=== PATIENT | female | born 1945 | race Caucasian/White ===

== ENCOUNTER 2017-01-04 06:58 | Inpatient (IN) | payer MEDICARE ==
[2017-01-04] MEDS ORDERED: ONDANSETRON HCL/PF 2 MG/ML VIAL IV ONE (07:07)
[2017-01-04] MEDS ORDERED: MORPHINE SULFATE 2 MG/ML DISP.SYRIN IV ONE ×3 (07:07→09:37)
[2017-01-04] MEDS ORDERED: NORMAL SALINE 1,000 ML IV ONE (07:07)
[2017-01-04] MEDS ORDERED: MORPHINE SULFATE 2 MG/ML DISP.SYRIN ONE ×3 (07:14→10:08)
[2017-01-04] MEDS ORDERED: ONDANSETRON HCL/PF 2 MG/ML VIAL ONE (07:14)
--- NOTE | 2017-01-04 07:15 | ERNOTE ---
<TaylorFilippo - Last Filed: 01/04/17 07:59> Date of Service: 01/04/17 Stated Complaint: SOB Presenting Symptoms:: cough, fever Source: patient Exam Limitations: no limitations Immunizations: IMMUNIZATION HX Immunizations Up to Date Yes History of Influenza Vaccine Yes Hx Pneumococcal Vaccination Yes Allergies/Adverse Reactions: Allergies No Known Allergies Allergy (Verified 01/04/17 12:03) Home Medications: HOME MEDICATIONS Atorvastatin Calcium [Lipitor] 10 mg PO HS 03/02/13 [Last Taken Unknown] Insul NPH Hu Rec/Ins Rg Hu Rec [Novolin 70/30] 55 units SC QAM 03/02/13 [Last Taken Unknown] Lisinopril/Hydrochlorothiazide [Lisinopril-Hctz 20-25 mg Tab] 2 tab PO DAILY [Last Taken Unknown] Metoprolol Succinate [Toprol Xl] 100 mg PO QPM 03/02/13 [Last Taken 12/25/13 20: 00] Omeprazole [Prilosec] 40 mg PO DAILY 03/02/13 [Last Taken Unknown] Potassium Chloride [K-Dur] 20 meq PO BID 03/02/13 [Last Taken Unknown] Pramipexole Di-HCl [Mirapex] 0.125 mg PO HS 03/02/13 [Last Taken Unknown] Gabapentin [Neurontin] 200 mg PO TID 12/22/13 [Last Taken Unknown] Aspirin [Aspirin Chewable] 81 mg PO DAILY #100 tab.chew 08/10/14 [Last Taken Unknown] metFORMIN HCL [Glucophage] 500 mg PO BIDWM 10/10/16 [Last Taken Unknown] traMADol HCL [Ultram] 50 mg PO Q8H PRN 10/10/16 [Last Taken Unknown] Oxybutynin Chloride [Ditropan Xl] 10 mg PO DAILY 01/04/17 [Last Taken Unknown] - History of Present Ilness Timing: constant, getting worse Severity: moderate - Patient is crying out in pain requesting something for pain Frequency/Possible Cause: Reports: no prior episodes Modifying Factors - Improves: Reports: nothing Modifying Factors - Worsens: Reports: coughing Associated Symptoms: Reports: cough, shortness of breath Review of Systems - Review of Systems Constitutional: Present: See HPI EYE: Present: no symptoms reported ENT: Present: no symptoms reported Respiratory: Present: See HPI Cardiology: Present: See HPI Gastrointestinal/Abdominal: Present: no symptoms reported Genitourinary: Present: no symptoms reported Musculoskeletal: Present: no symptoms reported Skin: Present: no symptoms reported Neurological: Present: no symptoms reported Endocrine: Present: no symptoms reported Hematologic/Lymphatic: Present: no symptoms reported Psych: Present: no symptoms reported - Patient's Past Medical History Patient History - Medical: Chronic Pain, Diabetes Type 2 Insulin Dependent, GERD , Obesity, Other Patient History - Cardiac/Respiratory: Hypertension, Hyperlipidemia Patient History - Cancer: No Hx of Cancer Patient History - Surgical Procedures: Cholecystectomy, Total Knee Replacement, Other - Social History Smoking Status: Never smoker Have you smoked in the past 12 months: No - Immunizations Immunizations Up to Date: Yes Hx Pneumococcal Vaccination: Yes History of Influenza Vaccine: Yes Physical Exam - Physical Exam General Appearance: Present: moderate distress, anxious, obese - morbidly obese Eye Exam: Normal inspection: bilateral, PERRL: bilateral Ears, Nose, Throat: Present: normal ENT inspection, H, normal pharynx Neck: Present: normal inspection, nontender Respiratory: Present: chest nontender - right lower anterior, lungs clear, decreased breath sounds. Absent: rales, wheezing Cardiovascular/Chest: Present: regular rate, rhythm - rate 94 Gastrointestinal/Abdominal: Present: normal bowel sounds, nontender, nondistended, soft Rectal Exam: Present: deferred Back Exam: Present: normal inspection Extremity Exam: Present: normal inspection, non-tender, normal range of motion Neurological Exam: Present: alert, oriented, no motor/sensory deficits Skin Exam: Present: normal color, warm/dry Lymphatic Exam: Present: no adenopathy Pelvic Exam: Present: deferred ED Progress - Vital Signs Vital Signs: Vital Signs 01/04/17 07:01 Temperature 36.7 C Pulse Rate 96 Respiratory 32 H Rate Blood Pressure 159/85 O2 Sat by Pulse 92 Oximetry - EKG EKG: NSR, no ST T wave changes - X-Ray X-Ray #1 X-Ray: chest - RLL pneumonia - Progress/Reassessment Chief Complaint: Cough - Transfer of Care Physician Sign Out: Filippo Vazquez Brief History: RLL pneumonia Receiving Physician: Amarilys Ortega Expected Disposition: Admit Departure - Departure Clinical Impression: Pneumonia Qualifiers: Pneumonia type: due to unspecified organism Laterality: right Lung location: lower lobe of lung Qualified Code(s): J18.1 - Lobar pneumonia, unspecified organism Sepsis Qualifiers: Sepsis type: sepsis due to unspecified organism Qualified Code(s): A41.9 - Sepsis, unspecified organism Pulmonary embolism Qualifiers: Pulmonary embolism type: other Chronicity: acute Acute cor pulmonale presence: without acute cor pulmonale Qualified Code(s): I26.99 - Other pulmonary embolism without acute cor pulmonale Disposition: [facility] Condition: Fair <Amarilys Ortega - Last Filed: 01/04/17 12:25> Immunizations: IMMUNIZATION HX Immunizations Up to Date Yes History of Influenza Vaccine Yes Hx Pneumococcal Vaccination Yes Physical Exam - Physical Exam General Appearance: Present: alert, mild distress, anxious, obese Respiratory: Present: no respiratory distress Neurological Exam: Present: alert, oriented Skin Exam: Present: normal color, warm/dry ED Progress - Results and Orders Patient's Lab Results:: I have reviewed the patient's lab results. - Vital Signs Patient's Vital Signs:: I have reviewed the patient's vital signs. Vital Signs: Vital Signs 01/04/17 07:01 Temperature 36.7 C Pulse Rate 96 Respiratory 32 H Rate Blood Pressure 159/85 O2 Sat by Pulse 92 Oximetry - X-Ray X-Ray #1 X-Ray: chest Interpretation: Reviewed by me - CT/Ultrasound CT/Ultrasound Narrative: CT chest: small RUL PE, right mid and lower lung infiltrate - Progress/Reassessment Progress Note-Subjective: 01/04/17 08:08 discussed results of pneumonia with patient, patient meets SIRS criteria, pneumonia severity index 99 (class IV) meets admission criteria, patient requesting pain medication 01/04/17 10:[address] results with radiologist 01/04/17 10:15 message to Ashleigh Romero 01/04/17 10:[address] results with patient and family, agrees to admission 01/04/17 10:35 discussed with Ashleigh Romero, okay to admit to acute, will continue rocephin and zithromax, patient received lovenox, will let admitting doctor decide on care home anticoagulation
[2017-01-04 07:26] LABS: Hematocrit 39.4 % (37.0-47.0); Hemoglobin 13.1 gm/dL (12.5-16.0); Mean Corpuscular Hemoglobin 27.9 pg (27-31); Mean Corpuscular Hgb Conc 33.2 g/dl (32-36); Mean Platelet Volume 9.6 fl (6.0-9.5); Platelet Count 251 K/mm3 (150-450); Red Blood Count 4.69 M/mm3 (4.2-5.4); Red Cell Distribution Width 13.4 % (11.5-14.0); White Blood Count 18.7 K/mm3 (4.0-10.5)
[2017-01-04 07:28] LABS: Total Cells Counted 100
--- OUTSIDE RECORDS SUMMARY | 2017-01-04 07:30 | XMS REPORT | Continuity of Care Document ---
:1945 Author Organization [facility] ([facility]) Address [address] [place] [address] Phone [phone] Care Team Providers Name Role Phone Naya Husain Primary Care Provider [phone] Source Comments This disclosure is being made pursuant to the Care Everywhere program, applicable federal and state laws, and may not contain all informaitonavailable regarding this patient.[facility] ([facility]) Active Allergies and Adverse Reactions Allergen Noted Date Severity Reactions Comments No Known Allergies 02/05/2009 NO REACTION Current Medications Prescription Sig. Disp. Refills Start Date End Date Status omeprazole 40 mg Take 40 mg by Active capsule mouth daily. lisinopril-hydrochl Take 2 Tabs Active orothiazide 20-25 by mouth mg per tablet daily. pramipexole 0.125 Take 0.125 mg Active mg tablet by mouth at bedtime. flecainide 100 mg Take 100 mg Active tablet by mouth 2 times daily. atorvastatin 10 mg Take 10 mg by Active tablet mouth every evening. metoPROLol Take 100 mg Active succinate 100 mg XL by mouth 2 tablet times daily. potassium chloride Take 20 mEq Active 20 mEq tablet by mouth 2 times daily. metFORMIN 1,000 mg Take 1,000 mg Active tablet by mouth 2 times daily with meals. aspirin 81 mg EC take 1 tablet 08/29/2014 Active tablet by oral route every day nitroglycerin 0.4 One tab under 12/23/2011 Active mg SL tablet tongue for chest pain; may repeat every 5 min up to total of 3 tabs traMADol 50 mg 50 mg 2 times 01/07/2016 Active tablet daily. NOVOLIN 70/30 100 55 Units 12/12/2015 Active unit/mL injection daily. vial oxybutynin 5 mg Take 1 tablet 30 tablet 11 09/24/2016 Active tablet (5 mg total) by mouth every 4 hours as needed. gabapentin 100 mg Take 100 mg Active capsule by mouth 3 times daily. HYDROcodone-acetami Take 1-2 30 tablet 0 09/24/2016 12/18/2016 Discontinued nophen 5-325 mg per tablets by tablet mouth every 4 hours as needed for pain. docusate 100 mg Take 1 30 capsule 2 09/24/2016 12/18/2016 Discontinued capsule capsule (100 mg total) by mouth 2 times daily. sennosides 8.6 mg Take 1 tablet 30 tablet 2 09/24/2016 12/18/2016 Discontinued tablet (8.6 mg total) by mouth daily. fosfomycin Take 3 g by 1 Packet 0 10/16/2016 12/18/2016 Discontinued (MONUROL) 3 gram mouth once. packet Mix packet in 3 to 4 ounces of water. fosfomycin Take 3 g by 3 Packet 0 12/22/2016 12/25/2016 (MONUROL) 3 gram mouth once packet for 3 days. Mix packet in 3 to 4 ounces of water. 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 Urge incontinence 09/17/2016 Arthritis 07/01/2011 Type II or unspecified type diabetes mellitus without mention of 06/28/2001 complication, not stated as uncontrolled Unspecified essential hypertension 06/28/2001 Most Recent Encounters Date Type Specialty Providers Description 12/22/2016 Telephone Rehana Angel MD Dx: UTI symptoms ( Primary Dx) 12/18/2016 Office Visit Rehana Angel MD Dx: Bladder mass ( Primary Dx) 10/19/2016 Telephone Rehana Angel MD 10/16/2016 Office Visit Rehana Angel MD Dx: Premalignant bladder lesion (Primary Dx) 10/09/2016 Telephone Rehana Angel MD Chief Comp: Patient Concern Immunizations Name Dates Previously Given Next Due Influenza, unspecified 05/23/2012 Pneumococcal, unspecified 05/23/2012 Social History Tobacco Use Types Packs/Day Years Used Date Never Smoker Smokeless Tobacco: Never Used Tobacco Cessation:Counseling Given: Yes Comments: Alcohol Use Drinks/Week oz/Week Comments No Last Filed Vital Signs Vital Sign Reading Time Taken Blood Pressure 147/74 12/18/2016 12:58 PM BRIDGE INSTRUCTOR Pulse 60 12/18/2016 12:58 PM BRIDGE INSTRUCTOR Temperature 35.7 C (96.3 F) 12/18/2016 12:56 PM BRIDGE INSTRUCTOR Respiratory Rate 12 09/24/2016 12:45 PM BRIDGE INSTRUCTOR Height 1.676 m (5' 6") 09/24/2016 9:58 AM BRIDGE INSTRUCTOR Weight 132.2 kg (291 lb 7.2 oz) 09/24/2016 9:58 AM BRIDGE INSTRUCTOR Body Mass Index 47.06 09/24/2016 9:58 AM BRIDGE INSTRUCTOR Oxygen Saturation 95% 09/24/2016 2:00 PM BRIDGE INSTRUCTOR Plan of Care Date Type Specialty Providers Description 03/29/2017 Appointment Urology Rehana Hussein MD Chief Comp: Patient [address] [place] [address] [phone] (Fax) Health Maintenance Due Date Last Done Comments HCV Screening 1945 Hepatitis B Vaccine (1 of 3 - Primary Series) 1945 Tdap Vaccine 1958 DIABETIC: Cholesterol 1965 Diabetic: Hdl 1965 DIABETIC: Hemoglobin A1C 1965 Diabetic: Ldl 1965 DIABETIC: Microalbumin 1965 DIABETIC: Triglycerides 1965 Td Vaccine 1965 Mammogram 1987 Colonoscopy 09/01/1997 Zoster Vaccine 2007 DIABETIC: Foot Exam 03/24/2011 DIABETIC: Retinal Eye Exam 03/24/2011 Osteoporosis Screening (DXA Bone Density) 2012 Pneumococcal Vaccine (1 of 2 - PCV13) 2012 Influenza Vaccine: Seasonal (#1) 05/11/2016 05/23/2012 Procedures from Last 3 Months Procedure Name Priority Date/Time Associated Diagnosis Comments SCOPE OF BLADDER Routine 12/18/2016 3:56 PM Bladder mass Results for this AND URETHRA, FOR BRIDGE INSTRUCTOR Dysuria procedure are in DIAGNOSIS the results section. Results from Last 3 Months CYSTOSCOPY (12/18/2016 3:56 PM) Narrative Rehana Hussein MD 12/18/20163:56 PM Urology Clinic Note Encounter Date: 12/18/2016 Subjective: Chief Complaint Chief Complaint Patient presents with Procedure Cystoscopy -- 8 weeks History of Present Illness: Kimberli Albert is a 71 y.o. female with hx of urgency, frequency, UUI s/p interstim placement in 2012.In the fall she had bladder mass and underwent TURBT - pathology demonstrated: Diagnosis Urinary bladder, left lateral wall, transurethral resection: Verrucous squamous hyperplasia. Marked acute and chronic cystitis, including follicular cystitis. Fungal organisms, morphologically consistent with beverly species. Muscularis propria present. She has some vaginal burning and itching that she uses a home remedy for.With regards to her bladder, during the daytime she has 1 UUI episode.However she is continuing to have a lot of urinary leakage at night. 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 flecainide 100 mg tablet Take 100 mg by mouth 2 times daily. gabapentin 100 mg capsule Take 100 mg by mouth 3 times daily. lisinopril-hydrochlorothiazide 20-25 mg per tablet Take 2 Tabs by mouth daily. metFORMIN 1,000 mg tablet Take 1,000 mg by mouth 2 times daily with meals. metoPROLol succinate 100 mg XL tablet Take 100 mg by mouth 2 times daily. nitroglycerin 0.4 mg SL tablet One tab under tongue for chest pain; may repeat every 5 min up to total of 3 tabs NOVOLIN 70/30 100 unit/mL injection vial 55 Units daily. omeprazole 40 mg capsule Take 40 mg by mouth daily. oxybutynin 5 mg tablet Take 1 tablet (5 mg total) by mouth every 4 hours as needed. 30 tablet 11 potassium chloride 20 mEq tablet Take 20 mEq by mouth 2 times daily. pramipexole 0.125 mg tablet Take 0.125 mg by mouth at bedtime. traMADol 50 mg tablet 50 mg 2 times daily. No current facility-administered medications for this visit. Allergies Allergen Reactions No Known Allergies NO REACTION Review of Systems Nocturia with incontinence, UUI No fevers, chills + dysuria No nausea, emesis Objective: BP 147/74 mmHg | Pulse 60 | Temp(Src) 35.7 C (96.3 F) (Tympanic) Exam: General: alert, cooperative, no distress, appears stated age Head: Normocephalic, without obvious abnormality, atraumatic Genital: External genitalia normal, Vagina normal without discharge, Urethral meatus: within normal limits Extremeties: extremities normal, atraumatic, no cyanosis or edema Neuro: normal without focal findings mental status, speech normal, alert and oriented x 3 normal gait Cystoscopy Performed by: REHANA HUSSEIN Ordered by: REHANA HUSSEIN Procedure Details: Cystoscopy (50183) Patient tolerance: Patient tolerated the procedure well with no immediate complications -25 modifier After informed written consent was obtained, the patient was identified and taken to the procedure suite.Antibiotics were not administered.The perineum was prepped and draped in the standard sterile fashion.Viscous Lidocaine jelly was injected into the urethra.A flexible cystoscope was then navigated into the bladder under direct visualization.Panendoscopy of the bladder did not reveal any suspicious lesions, papillary growths, foreign bodies or calculi.The left lateral wall has diffuse erythema around the area of prior bx an resection.There is a fair amount of sediment within the bladder.This was suction irrigated.The cystoscope was then retroflexed upon itself and the bladder neck visualized; no abnormalities were detected. Bladder washings were then obtained and sent for cytology.The cystoscope was then slowly withdrawn; no urethral abnormalities were detected.The patient tolerated the procedure well and without any immediate complications. I personally performed the procedure today Rehana Hussein MD Clinical Commutator Tester Department of Urology Data Review: I checked the device impedances at amp of 1 and 2 all connections with electrode 3 are >4000.However she is feeling the device on her current programs vaginally. Assessment: Kimberli Albert is a 71 y.o. female with diffuse erythema on the left side of the bladder again.Daytime symptoms are fairly well controlled, however she is having nocturnal enuresis. ICD-9-CM ICD-10-CM 1. Bladder mass 596.89 N32.89 lidocaine 2% urojet 10 mL ciprofloxacin HCl (CIPRO) tablet 500 mg CYTOLOGY NON-MACHINE ROUGH ROUNDER EXAM FOLLOW-UP - UROLOGY 2. Dysuria 788.1 R30.0 URINE CULTURE, ROUTINE AEROBIC FOLLOW-UP - UROLOGY Plan: Urine culture and cytology pending Will place on low dose antibiotics for culture results No intervention for night symptoms RTC in 3 months for cystoscopy Staff Physician Comments Teaching Statement A procedure was performed on day of service.However, there was a significant, separately identifiable evaluation and management service by the same physician on the same day of the procedure realted to evaluation bladder mass.This is beyond the work typically associated with the procedure , as documented in the clinical note above and thus suitable for Modifier 25. Staff Involved Staff Only Rehana Hussein MD URINE CULTURE, ROUTINE AEROBIC (12/18/2016 1:56 PM)Only the most recent of2 resultswithin the time period is included. Component Value Range Quantitative Culture <10,000 CFU/mL [employer] omnicolens(A) Specimen Culture - Cystoscopy Narrative Identification performed by MALDI-TOF mass spectrometry (MS).The performance characteristics of MALDI-TOF MS were determined by the [facility].It has not been cleared orApproved by the FDA. The FDA has determined that such clearance or approval is not necessary.This test is for clinical purposes. It should not be regarded as investigational or for research.The laboratory is certified under the Clinical Laboratory Improvement Amendments of 1988 (CLIA) as qualified to perform high complexity clinical laboratory testing. CYTOLOGY NON-MACHINE ROUGH ROUNDER EXAM (12/18/2016 1:54 PM) Component Value Range Case Report Non-Subway Car Repairer Cytopathology Case: [id number] Authorizing Provider:Rehana Hussein MDCollected: 12/18/2016 01:54 PM Ordering Location: Urology Clinic Received: 12/18/2016 03:50 PM Pathologist: Kitty Huff MD Specimen:Bladder Washing Interpretation Bladder washing: Negative for high grade urothelial carcinoma. Marked acute inflammation. I have personally reviewed this case and edited the report as necessary. Specimen Description 8 mL yellow fluid Specimen Other - Bladder Washing
[2017-01-04 07:34] LABS: Band 21 % (0-2.0); Lymphocyte 3 % (20-51); Monocyte 2 % (0-9); Neutrophil 74 % (42-75); Neutrophil # 13.8 K/mm3 (1.3-6.0); Platelet Estimate Normal (NORMAL); RBC Morphology Normal (NORMAL)
[2017-01-04 07:48] LABS: Albumin * 3.1 gm/dl (3.4-5.0); Anion Gap 18.1 mmol/L (6.8-13.8); BUN/Creatinine Ratio 18.7 (9.0-21.6); Bilirubin, Total 3.5 mg/dL (0.0-1.1); Ca. Corrected For Albumin 10.1 mg/dL (8.4-10.2); Calcium * 9.7 mg/dL (7.9-10.9); Carbon Dioxide 23.2 mmol/L (24-32.6); Potassium 3.3 mmol/L (3.4-4.6)
[2017-01-04] MEDS ORDERED: ENOXAPARIN SODIUM 100 MG/ML SYRG SC ONE ×2 (10:19→11:12)
--- OUTSIDE RECORDS SUMMARY | 2017-01-04 10:42 | XMS REPORT | Continuity of Care Document ---
:1945 Author Organization [facility] ([facility]) Address [address] [place] [address] Phone [phone] Care Team Providers Name Role Phone Naya Husain Primary Care Provider [phone] Source Comments This disclosure is being made pursuant to the Care Everywhere program, applicable federal and state laws, and may not contain all informaitonavailable regarding this patient.[facility] ([facility]) Active Allergies and Adverse Reactions Allergen [...] Taken Blood Pressure 147/74 12/18/2016 12:58 PM GRAIN ELEVATOR AGENT Pulse 60 12/18/2016 12:58 PM GRAIN ELEVATOR AGENT Temperature 35.7 C (96.3 F) 12/18/2016 12:56 PM GRAIN ELEVATOR AGENT Respiratory Rate 12 09/24/2016 12:45 PM GRAIN ELEVATOR AGENT Height 1.676 m (5' 6") 09/24/2016 9:58 AM GRAIN ELEVATOR AGENT Weight 132.2 kg (291 lb 7.2 oz) 09/24/2016 9:58 AM GRAIN ELEVATOR AGENT Body Mass Index 47.06 09/24/2016 9:58 AM GRAIN ELEVATOR AGENT Oxygen Saturation 95% 09/24/2016 2:00 PM GRAIN ELEVATOR AGENT Plan of Care Date Type Specialty Providers Description 03/29/2017 Appointment Urology Rehana Hussein MD Chief Comp: Patient [address] [place] [address] [phone] (Fax) Health Maintenance Due Date Last Done [...] mass Results for this AND URETHRA, FOR GRAIN ELEVATOR AGENT Dysuria procedure are in DIAGNOSIS the results [...] Ordered by: REHANA HUSSEIN Procedure Details: Cystoscopy (13779) Patient tolerance: Patient tolerated the procedure well [...] the procedure today Rehana Hussein MD Clinical Cold Strip Roller Department of Urology Data Review: I checked [...] ciprofloxacin HCl (CIPRO) tablet 500 mg CYTOLOGY NON-PATIENT SERVICES REPRESENTATIVE EXAM FOLLOW-UP - UROLOGY 2. Dysuria 788.1 [...] were determined by the [facility].It has not been cleared orApproved by the FDA. The FDA has determined that such clearance or approval is not necessary.This test is for clinical purposes. It should not be regarded as investigational or for research.The laboratory is certified under the Clinical Laboratory Improvement Amendments of 1988 (CLIA) as qualified to perform high complexity clinical laboratory testing. CYTOLOGY NON-PATIENT SERVICES REPRESENTATIVE EXAM (12/18/2016 1:54 PM) Component Value Range Case Report Non-Group Billing Coordinator Cytopathology Case: [id number] Authorizing Provider:Rehana Hussein MDCollected: 12/18/2016 01:54 PM Ordering Location: Urology Clinic Received: 12/18/2016 03:50 PM Pathologist: Kitty Huff MD Specimen:Bladder Washing Interpretation Bladder washing: Negative for high grade urothelial carcinoma. Marked acute inflammation. I have personally reviewed this case and edited the report as necessary. Specimen Description 8 mL yellow fluid Specimen Other - Bladder Washing
[2017-01-04] MEDS ORDERED: ONDANSETRON HCL/PF 2 MG/ML VIAL IV PRN (10:46)
[2017-01-04] MEDS ORDERED: ACETAMINOPHEN 500 MG TABLET PO PRN (10:46)
[2017-01-04] MEDS ORDERED: AZITHROMYCIN 250 MG TABLET PO STA (10:46)
[2017-01-04] MEDS ORDERED: AZITHROMYCIN 250 MG TABLET ONE (11:12)
[2017-01-04] MEDS: MORPHINE SULFATE 2 MG/ML DISP.SYRIN IV PRN ×2 (11:47→19:54)
[2017-01-04] MEDS: NORMAL SALINE 1,000 ML IV SCH ×2 (12:32→19:58)
[2017-01-04] MEDS ORDERED: ALBUTEROL SULFATE/IPRATROPIUM 3 ML NEBU IH PRN (13:35)
[2017-01-04] MEDS: HYDROcodone/ACETAMINOPHEN 1 EACH TABLET PO PRN ×3 (13:59→21:16)
[2017-01-04 16:04] LABS: Urine Bilirubin 1 mg/dl (NEGATIVE); Urine Blood 250 /ul (NEGATIVE); Urine Ketone Negative (NEGATIVE); Urine Nitrite Negative (NEGATIVE); Urine Protein 100 mg/dL (NEGATIVE); Urine Specific Gravity 1.025 SP.GR. (1.005-1.010); Urine Urobilinogen Normal (NORMAL)
[2017-01-04 16:16] LABS: Urine Appearance Cloudy; Urine Bacteria 2+; Urine Color Amber
[2017-01-04 17:13] LABS: Prothrombin Time (Patient) 12.3 Seconds (9.4-11.4)
[2017-01-04 17:14] LABS: INR 1.18 INR (0.90-1.10)
[2017-01-04] MEDS: INSULIN REGULAR, HUMAN 100 UNITS/ML VIAL SC SCH ×2 (17:43→21:04)
[2017-01-04] MEDS ORDERED: WARFARIN SODIUM 5 MG TABLET PO SCH (19:00)
--- NOTE | 2017-01-04 20:32 | HP ---
<Ashleigh Romero - Last Filed: 01/04/17 20:35> Chief Complaint - Chief Complaint Date of Service: 01/04/17 Time of Service: 15:05 Chief Complaint: PE, chest pain, UTI, pneumonia, History of Present Illness: Kimberli is a 71 year old female with a PMH of afib (on flecinide - pt states she has not been in afib in "many years"), DM, GERD, HTN, HLP, morbid obesity that presented to the ER with c/o cough, chest pain, dyspnea, body aches, chills. ER work up revealed small RUL PE, RML and RLL pneumonia and patient was started on oral azithromycin, iv rocephin, and lovenox sq 1mg/kg. labs revealed wbc 18.7, with 21% bands, lactic acid at 2.7 and went down to 1.5 with sepsis protocol hydration, elevated bilirubin at 3.5, negative rapid influenza, bnp at 3338. patient was given iv morphine for chest pain in the ER. - Patient's Past Medical History Patient History - Medical: Chronic Pain, Diabetes Type 2 Insulin Dependent, GERD , Obesity, Other Patient History - Cardiac/Respiratory: Hypertension, Hyperlipidemia Patient History - Cancer: No Hx of Cancer Patient History - Surgical Procedures: Cholecystectomy, Total Knee Replacement, Other LMP (females 10-50): postmenopausal - Family History Mother Family History - Medical: Family History - Cardiac/Respiratory: CVA/Stroke Family History - Cancer: No pertinent family hx Father Family History - Medical: Family History - Cardiac/Respiratory: Myocardial Infarction Family History - Cancer: No pertinent family hx - Social History Living Situations: spouse Abuse History: No History of abuse Psych History: No pertinent hx Smoking Status: Never smoker Have you smoked in the past 12 months: No Do you dip or chew tobacco: No Patient requests Smoking Cessation Consult: No Initiate information on Smoking Cessation: No Alcohol Use: none Drug Use: none - Immunizations Immunizations Up to Date: Yes Hx Pneumococcal Vaccination: Yes History of Influenza Vaccine: Yes Review Of Systems (GEN) - Review of Systems Generalized/Overall Review: Present: Malaise, Fatigue EENTM: Present: No Symptoms Reported Respiratory: Present: Cough, Shortness of Breath Cardiac: Present: Chest Pain. Absent: Edema Abdominal: Present: No Symptoms Reported Genitourinary: Present: No Symptoms Reported Musculoskeletal: Present: No Symptoms Reported Neurological: Present: No Symptoms Reported Skin: Present: No Symptoms Reported Endocrine: Present: No Symptoms Reported Misc: All systems neg except as marked Allergies/Adverse Reactions: Allergies Allergy/AdvReac Type Severity Reaction Status Date / Time No Known Allergies Allergy Verified 01/04/17 12:03 Home Medications: HOME MEDICATIONS Atorvastatin Calcium [Lipitor] 10 mg PO HS 03/02/13 [Last Taken Unknown] Insul NPH Hu Rec/Ins Rg Hu Rec [Novolin 70/30] 55 units SC QAM 03/02/13 [Last Taken Unknown] Lisinopril/Hydrochlorothiazide [Lisinopril-Hctz 20-25 mg Tab] 2 tab PO DAILY [Last Taken Unknown] Metoprolol Succinate [Toprol Xl] 100 mg PO QPM 03/02/13 [Last Taken 12/25/13 20: 00] Omeprazole [Prilosec] 40 mg PO DAILY 03/02/13 [Last Taken Unknown] Potassium Chloride [K-Dur] 20 meq PO BID 03/02/13 [Last Taken Unknown] Pramipexole Di-HCl [Mirapex] 0.125 mg PO HS 03/02/13 [Last Taken Unknown] Gabapentin [Neurontin] 200 mg PO TID 12/22/13 [Last Taken Unknown] Aspirin [Aspirin Chewable] 81 mg PO DAILY #100 tab.chew 08/10/14 [Last Taken Unknown] metFORMIN HCL [Glucophage] 500 mg PO BIDWM 10/10/16 [Last Taken Unknown] traMADol HCL [Ultram] 50 mg PO Q8H PRN 10/10/16 [Last Taken Unknown] Oxybutynin Chloride [Ditropan Xl] 10 mg PO DAILY 01/04/17 [Last Taken Unknown] Exam - Exam Vital Signs: Vital Signs - Last Taken Temp 37.0 C 01/04/17 18:27 Pulse 86 01/04/17 18:27 Resp 20 01/04/17 18:27 BP 131/47 01/04/17 18:27 Pulse Ox 98 01/04/17 18:27 Constitutional: Present: Alert, Oriented x3, Cooperative, No distress ENT Exam: Present: hearing grossly normal Eye Exam: bilateral eye: normal inspection Neck: Present: full range of motion, supple Breasts: Present: Exam deferred Respiratory: Present: lungs clear, normal breath sounds, no respiratory distress , no accessory muscle use Cardiovascular/Chest: Present: regular rate, rhythm, no chest tenderness, no murmur Peripheral Pulses: carotid (R): 2+, carotid (L): 2+, dorsalis-pedis (R): 2+, dorsalis-pedis (L): 2+, radial (R): 2+, radial (L): 2+ Abdomen: Present: Normal bowel sounds, soft, nondistended, tender - RUQ /Rectal: Present: Exam deferred Extremity: Present: non-tender, normal inspection. Absent: lower extremity edema Skin Exam: Present: normal color, warm/dry, no cyanosis Neurologic: Present: alert, oriented x 3 Diagnostic Studies: Abnormal Lab Results 01/04/17 Range/Units 15:48 Urine Protein 100 H (NEGATIVE) mg/dL Urine Glucose (UA) 500 H (NEGATIVE) mg/dL Urine Blood 250 H (NEGATIVE) /ul Urine Bilirubin 1 H (NEGATIVE) mg/dl Urine Ictotest Positive H (NEGATIVE) Prot Sulfosalicylic Acd 4+ H (0) mg/dL Ur Leukocyte Esterase 75 H (NEGATIVE) /ul Urine RBC 10-25 H (0-5) /hpf Urine WBC 5-10 H (0-5) /hpf Urine Bacteria 2+ H (NONE) Laboratory Results WBC 18.7 K/mm3 (4.0-10.5) H 01/04/17 07:15 RBC 4.69 M/mm3 (4.2-5.4) 01/04/17 07:15 Hgb 13.1 gm/dL (12.5-16.0) 01/04/17 07:15 Hct 39.4 % (37.0-47.0) 01/04/17 07:15 MCV 84.0 fl (78-100) 01/04/17 07:15 MCH 27.9 pg (27-31) 01/04/17 07:15 MCHC 33.2 g/dl (32-36) 01/04/17 07:15 RDW 13.4 % (11.5-14.0) 01/04/17 07:15 Plt Count 251 K/mm3 (150-450) 01/04/17 07:15 MPV 9.6 fl (6.0-9.5) H 01/04/17 07:15 Neutrophils % (Manual) 74 % (42-75) 01/04/17 07:15 Band Neuts % (Manual) 21 % (0-2.0) H 01/04/17 07:15 Lymphocytes % (Manual) 3 % (20-51) L 01/04/17 07:15 Monocytes % (Manual) 2 % (0-9) 01/04/17 07:15 Neutrophils # (Manual) 13.8 K/mm3 (1.3-6.0) H 01/04/17 07:15 Lymphocytes # (Manual) 0.6 k/mm3 (1.5-3.5) L 01/04/17 07:15 Monocytes # (Manual) 0.4 k/mm3 (0.0-1.0) 01/04/17 07:15 Platelet Estimate Normal (NORMAL) 01/04/17 07:15 RBC Morphology Normal (NORMAL) 01/04/17 07:15 PT 12.3 Seconds (9.4-11.4) H 01/04/17 07:15 INR (Anticoag Therapy) 1.18 INR (0.90-1.10) H 01/04/17 07:15 D-Dimer 1.78 mg/L (0.19-0.49) H 01/04/17 07:15 Sodium 132 mmol/L (132-142) 01/04/17 07:15 Plasma Sodium 135 mmol/L (130-142) 01/04/17 07:15 Potassium 3.3 mmol/L (3.4-4.6) L 01/04/17 07:15 Chloride 94 mmol/L (97-106) L 01/04/17 07:15 Carbon Dioxide 23.2 mmol/L (24-32.6) L 01/04/17 07:15 Anion Gap 18.1 mmol/L (6.8-13.8) H 01/04/17 07:15 BUN 23 mg/dL (3-23) D 01/04/17 07:15 Creatinine 1.23 mg/dL (0.4-1.4) 01/04/17 07:15 Est GFR (Non-Af Amer) 46 mL/min (60-130) L 01/04/17 07:15 BUN/Creatinine Ratio 18.7 (9.0-21.6) 01/04/17 07:15 Random Glucose 315 mg/dL (70-110) H 01/04/17 07:15 Lactic Acid, Venous 1.5 mmol/L (0.4-2.0) 01/04/17 10:30 Calcium 9.7 mg/dL (7.9-10.9) 01/04/17 07:15 Calcium Adj for Albumin 10.1 mg/dL (8.4-10.2) 01/04/17 07:15 Total Bilirubin 3.5 mg/dL (0.0-1.1) H 01/04/17 07:15 AST 17 U/L (0-48) 01/04/17 07:15 ALT 16 U/L (19-67) L 01/04/17 07:15 Alkaline Phosphatase 104 U/L (50-170) 01/04/17 07:15 B-Natriuretic Peptide 3338 pg/mL (5-325) H 01/04/17 07:15 Total Protein 8.0 gm/dL (6.2-8.2) 01/04/17 07:15 Albumin 3.1 gm/dl (3.4-5.0) L 01/04/17 07:15 Urine Color [place] 01/04/17 15:48 Urine Appearance Cloudy 01/04/17 15:48 Urine pH 6.0 pH (5.0-7.0) 01/04/17 15:48 Ur Specific [place] 1.025 SP.GR. (1.005-1.010) 01/04/17 15:48 Urine Protein 100 mg/dL (NEGATIVE) H 01/04/17 15:48 Urine Glucose (UA) 500 mg/dL (NEGATIVE) H 01/04/17 15:48 Urine Ketones Negative mg/dL (NEGATIVE) 01/04/17 15:48 Urine Blood 250 /ul (NEGATIVE) H 01/04/17 15:48 Urine Nitrate Negative (NEGATIVE) 01/04/17 15:48 Urine Bilirubin 1 mg/dl (NEGATIVE) H 01/04/17 15:48 Urine Ictotest Positive (NEGATIVE) H 01/04/17 15:48 Prot Sulfosalicylic Acd 4+ mg/dL (0) H 01/04/17 15:48 Urine Urobilinogen Normal EU/dl (NORMAL) 01/04/17 15:48 Ur Leukocyte Esterase 75 /ul (NEGATIVE) H 01/04/17 15:48 Urine RBC 10-25 /hpf (0-5) H 01/04/17 15:48 Urine WBC 5-10 /hpf (0-5) H 01/04/17 15:48 Ur Epithelial Cells Trace /hpf (0-5) 01/04/17 15:48 Urine Bacteria 2+ (NONE) H 01/04/17 15:48 Urine Culture Comments Culture to follow 01/04/17 15:48 Influenza Type A Ag Negative (NEGATIVE) 01/04/17 07:40 Influenza Type B Ag Negative (NEGATIVE) 01/04/17 07:40 Assessment/Plan - Narrative Narrative: Kimberli is a 71 year old female admitted with PE, pneumonia. saturated 88-89% on RA upon admission and thus was placed on oxygen via nc. will continue lovenox 1mg/kg every 12 hours for PE and also start coumadin with pharmacy to dose for PE. checked UA upon admission - UTI present. pt is already on iv rocephin for pneumonia, which will cover UTI - awaiting urine culture. right middle and lower lobe pneumonia - continue oral azithromycin and iv rocephin. check sputum culture if able. start incentive spirometery and cornet. Patient is also a diabetic with uncontrolled blood sugars - insulin is being adjusted outpatient. continue home meds for diabetes and check accuchecks achs with sliding scale insulin as needed. patient's lactic acidosis may be due to may factors - infection being just one of them but have cultures pending. on exam, pt has tenderness to palpation in the RUQ of the abdomen - will check US of liver in am. check labs in am and reassess then. patient also with a history of afib - currently in SR on flecinide. continue home meds. - Assessment/Plan (1) Diabetes Problem: Acute QualifierTitle: Diabetes mellitus type: type 2 Diabetes mellitus complication status: with hyperglycemia Diabetes mellitus assisted insulin use: with assisted use Qualified Code(s): E11.65 - Type 2 diabetes mellitus with hyperglycemia; Z79.4 - correction warden (current) use of insulin (2) UTI (urinary tract infection) Problem: Acute QualifierTitle: Urinary tract infection type: acute cystitis Hematuria presence: without hematuria Qualified Code(s): N30.00 - Acute cystitis without hematuria (3) Lactic acid acidosis Problem: Acute (4) Abdominal pain Problem: Acute QualifierTitle: Abdominal location: right upper quadrant Qualified Code(s ): R10.11 - Right upper quadrant pain (5) Elevated bilirubin Problem: Acute (6) Atrial fibrillation Problem: Chronic QualifierTitle: Atrial fibrillation type: unspecified Qualified Code(s): I48.91 - Unspecified atrial fibrillation (7) Hypertension Problem: Chronic QualifierTitle: Hypertension type: essential hypertension Qualified Code( s): I10 - Essential (primary) hypertension (8) Hyperlipidemia Problem: Chronic QualifierTitle: Hyperlipidemia type: unspecified Qualified Code(s): E78.5 - Hyperlipidemia, unspecified (9) Morbid obesity Problem: Chronic QualifierTitle: Obesity type: due to excess calories Qualified Code(s): E66.01 - Morbid (severe) obesity due to excess calories (10) Pneumonia Problem: Acute QualifierTitle: Pneumonia type: due to unspecified organism Laterality: right Lung location: lower lobe of lung Qualified Code(s): J18.1 - Lobar pneumonia, unspecified organism (11) Pulmonary embolism Problem: Acute QualifierTitle: Pulmonary embolism type: other Chronicity: acute Acute cor pulmonale presence: without acute cor pulmonale Qualified Code(s): I26.99 - Other pulmonary embolism without acute cor pulmonale (12) Sepsis Problem: Suspected QualifierTitle: Sepsis type: sepsis due to unspecified organism Qualified Code(s): A41.9 - Sepsis, unspecified organism (13) Chest pain Problem: Acute QualifierTitle: Chest pain type: unspecified Qualified Code(s): R07.9 - Chest pain, unspecified <Ventura Ledesma - Last Filed: 01/06/17 10:13> Immunizations: IMMUNIZATION HX Immunizations Up to Date Yes History of Influenza Vaccine Yes Hx Pneumococcal Vaccination Yes Exam - Exam Vital Signs: Vital Signs - Last Taken Temp 36.7 C 01/06/17 09:00 Pulse 127 H 01/06/17 09:18 Resp 24 H 01/06/17 09:00 BP 147/86 01/06/17 09:18 Pulse Ox 97 01/06/17 09:00 Diagnostic Studies: Abnormal Lab Results 01/05/17 Range/Units 05:35 Procalcitonin 3.19 H (0.05-0.50) ng/mL Microbiology 01/04/17 16:17 Urine Culture - Final Urine,Voided No Pathogens Isolated Laboratory Results WBC 9.4 K/mm3 (4.0-10.5) D 01/05/17 05:35 RBC 3.71 M/mm3 (4.2-5.4) L 01/05/17 05:35 Hgb 10.2 gm/dL (12.5-16.0) L 01/05/17 05:35 Hct 32.2 % (37.0-47.0) L 01/05/17 05:35 MCV 86.8 fl (78-100) 01/05/17 05:35 MCH 27.5 pg (27-31) 01/05/17 05:35 MCHC 31.7 g/dl (32-36) L 01/05/17 05:35 RDW 13.6 % (11.5-14.0) 01/05/17 05:35 Plt Count 187 K/mm3 (150-450) 01/05/17 05:35 MPV 9.3 fl (6.0-9.5) 01/05/17 05:35 Neutrophils % (Manual) 75 % (42-75) 01/05/17 05:35 Band Neuts % (Manual) 8 % (0-2.0) H 01/05/17 05:35 Lymphocytes % (Manual) 11 % (20-51) L 01/05/17 05:35 Monocytes % (Manual) 2 % (0-9) 01/04/17 07:15 Eosinophils % (Manual) 5 % (0-3) H 01/05/17 05:35 Immature Granulocytes 1 (0-1) 01/05/17 05:35 Neutrophils # (Manual) 7.1 K/mm3 (1.3-6.0) H 01/05/17 05:35 Lymphocytes # (Manual) 1.0 k/mm3 (1.5-3.5) L 01/05/17 05:35 Monocytes # (Manual) 0.4 k/mm3 (0.0-1.0) 01/04/17 07:15 Eosinophils # (Manual) 0.5 k/mm3 (0.0-0.7) 01/05/17 05:35 Platelet Estimate Normal (NORMAL) 01/05/17 05:35 RBC Morphology Normal (NORMAL) 01/05/17 05:35 PT 10.5 Seconds (9.4-11.4) 01/06/17 05:17 INR (Anticoag Therapy) 1.01 INR (0.90-1.10) 01/06/17 05:17 D-Dimer 1.78 mg/L (0.19-0.49) H 01/04/17 07:15 Sodium 134 mmol/L (132-142) 01/05/17 05:35 Plasma Sodium 135 mmol/L (130-142) 01/05/17 05:35 Potassium 3.6 mmol/L (3.4-4.6) 01/05/17 05:35 Chloride 101 mmol/L (97-106) 01/05/17 05:35 Carbon Dioxide 25.9 mmol/L (24-32.6) 01/05/17 05:35 Anion Gap 10.7 mmol/L (6.8-13.8) 01/05/17 05:35 BUN 26 mg/dL (3-23) H 01/05/17 05:35 Creatinine 1.06 mg/dL (0.4-1.4) 01/05/17 05:35 Est GFR (Non-Af Amer) 55 mL/min (60-130) L 01/05/17 05:35 BUN/Creatinine Ratio 24.5 (9.0-21.6) H 01/05/17 05:35 Random Glucose 143 mg/dL (70-110) H D 01/05/17 05:35 Lactic Acid, Venous 1.5 mmol/L (0.4-2.0) 01/04/17 10:30 Calcium 8.8 mg/dL (7.9-10.9) 01/05/17 05:35 Calcium Adj for Albumin 9.9 mg/dL (8.4-10.2) 01/05/17 05:35 Total Bilirubin 1.4 mg/dL (0.0-1.1) H 01/05/17 05:35 Direct Bilirubin 0.7 mg/dL (0.0-0.3) H 01/05/17 05:35 Indirect Bilirubin 0.7 mg/dL (0.1-0.7) 01/05/17 05:35 AST 13 U/L (0-48) 01/05/17 05:35 ALT 12 U/L (19-67) L 01/05/17 05:35 Alkaline Phosphatase 79 U/L (50-170) 01/05/17 05:35 B-Natriuretic Peptide 3338 pg/mL (5-325) H 01/04/17 07:15 Total Protein 6.1 gm/dL (6.2-8.2) L 01/05/17 05:35 Albumin 2.2 gm/dl (3.4-5.0) L 01/05/17 05:35 Procalcitonin 3.19 ng/mL (0.05-0.50) H 01/05/17 05:35 Urine Color [place] 01/04/17 15:48 Urine Appearance Cloudy 01/04/17 15:48 Urine pH 6.0 pH (5.0-7.0) 01/04/17 15:48 Ur Specific [place] 1.025 SP.GR. (1.005-1.010) 01/04/17 15:48 Urine Protein 100 mg/dL (NEGATIVE) H 01/04/17 15:48 Urine Glucose (UA) 500 mg/dL (NEGATIVE) H 01/04/17 15:48 Urine Ketones Negative mg/dL (NEGATIVE) 01/04/17 15:48 Urine Blood 250 /ul (NEGATIVE) H 01/04/17 15:48 Urine Nitrate Negative (NEGATIVE) 01/04/17 15:48 Urine Bilirubin 1 mg/dl (NEGATIVE) H 01/04/17 15:48 Urine Ictotest Positive (NEGATIVE) H 01/04/17 15:48 Prot Sulfosalicylic Acd 4+ mg/dL (0) H 01/04/17 15:48 Urine Urobilinogen Normal EU/dl (NORMAL) 01/04/17 15:48 Ur Leukocyte Esterase 75 /ul (NEGATIVE) H 01/04/17 15:48 Urine RBC 10-25 /hpf (0-5) H 01/04/17 15:48 Urine WBC 5-10 /hpf (0-5) H 01/04/17 15:48 Ur Epithelial Cells Trace /hpf (0-5) 01/04/17 15:48 Urine Bacteria 2+ (NONE) H 01/04/17 15:48 Urine Culture Comments Culture to follow 01/04/17 15:48 Influenza Type A Ag Negative (NEGATIVE) 01/04/17 07:40 Influenza Type B Ag Negative (NEGATIVE) 01/04/17 07:40 Assessment/Plan - Narrative Narrative: record reviewed. patient with both PE and pneumonia. I directly supervised all of the nurse practitioner's care for this patient. antibiotics, control sugars and anticoagulants.
[2017-01-04] MEDS ORDERED: traMADol HCL 50 MG TABLET PO PRN (20:56)
[2017-01-04] MEDS ORDERED: ATORVASTATIN CALCIUM 10 MG TABLET PO SCH (21:00)
[2017-01-04] MEDS ORDERED: ENOXAPARIN SODIUM 60 MG/0.6 ML SYRG SC SCH (21:00)
[2017-01-04] MEDS: ENOXAPARIN SODIUM 100 MG, ENOXAPARIN SODIUM 40 MG SC SCH ×2 (21:04)
[2017-01-04] MEDS: OXYBUTYNIN CHLORIDE 5 MG TABLET PO SCH (21:57)
[2017-01-04] MEDS: POTASSIUM CHLORIDE 20 MEQ TABLET.SA PO SCH (21:57)
[2017-01-04] MEDS: PRAMIPEXOLE DI-HCL 0.5 MG TABLET PO SCH (21:57)
[2017-01-05] MEDS: HYDROcodone/ACETAMINOPHEN 1 EACH TABLET PO PRN ×5 (00:18→23:13)
[2017-01-05] MEDS: MORPHINE SULFATE 2 MG/ML DISP.SYRIN IV PRN (03:01)
[2017-01-05] MEDS: NORMAL SALINE 1,000 ML IV SCH ×2 (03:19→12:02)
[2017-01-05 05:43] LABS: Hematocrit 32.2 % (37.0-47.0); Hemoglobin 10.2 gm/dL (12.5-16.0); Mean Cell Volume 86.8 fl (78-100); Mean Corpuscular Hemoglobin 27.5 pg (27-31); Mean Corpuscular Hgb Conc 31.7 g/dl (32-36); Mean Platelet Volume 9.3 fl (6.0-9.5); Platelet Count 187 K/mm3 (150-450); Red Blood Count 3.71 M/mm3 (4.2-5.4); Red Cell Distribution Width 13.6 % (11.5-14.0); White Blood Count 9.4 K/mm3 (4.0-10.5)
[2017-01-05 05:50] LABS: Prothrombin Time (Patient) 11.4 Seconds (9.4-11.4)
[2017-01-05 05:53] LABS: INR 1.1 INR (0.90-1.10)
[2017-01-05 06:00] LABS: Total Cells Counted 100
[2017-01-05 06:01] LABS: Albumin * 2.2 gm/dl (3.4-5.0); Anion Gap 10.7 mmol/L (6.8-13.8); BUN/Creatinine Ratio 24.5 (9.0-21.6); Bilirubin Direct 0.7 mg/dL (0.0-0.3); Bilirubin, Total 1.4 mg/dL (0.0-1.1); Bilirubin,Indirect 0.7 mg/dL (0.1-0.7); Ca. Corrected For Albumin 9.9 mg/dL (8.4-10.2); Calcium * 8.8 mg/dL (7.9-10.9); Carbon Dioxide 25.9 mmol/L (24-32.6); Potassium 3.6 mmol/L (3.4-4.6); Total Protein 6.1 gm/dL (6.2-8.2)
[2017-01-05 06:29] LABS: Band 8 % (0-2.0); Eosinophil 5 % (0-3); Immature Granulocyte 1 (0-1); Lymphocyte 11 % (20-51); Neutrophil 75 % (42-75); Neutrophil # 7.1 K/mm3 (1.3-6.0)
[2017-01-05 06:30] LABS: Platelet Estimate Normal (NORMAL); RBC Morphology Normal (NORMAL)
[2017-01-05] MEDS: INSULIN REGULAR, HUMAN 100 UNITS/ML VIAL SC SCH ×4 (07:14→22:09)
[2017-01-05] MEDS: PANTOPRAZOLE SODIUM 40 MG TABLET.EC PO SCH (07:30)
[2017-01-05] MEDS ORDERED: LISINOPRIL PO SCH (09:00)
[2017-01-05] MEDS ORDERED: metFORMIN HCL 500 MG TABLET PO SCH (09:00)
[2017-01-05] MEDS ORDERED: [UNRECOGNIZED DRUG - OTHER] PO SCH (09:00)
[2017-01-05] MEDS ORDERED: HYDROCHLOROTHIAZIDE PO SCH (09:00)
[2017-01-05] MEDS ORDERED: ENOXAPARIN SODIUM 60 MG/0.6 ML SYRG SC SCH (09:00)
--- NOTE | 2017-01-05 09:59 | PN ---
Subjective - Date and Time Seen Date: 01/05/17 Time: 09:36 Subjective Narrative: Mrs. Viveros was seen for follow-up of pneumonia and right upper lobe pulmonary embolism today. She continues to experience pain in the right side of the rib cage especially with deep inspiration. No N/V. Hyperglycemia is improving. She remains on 2L of . Urine culture is negative today. She had undergone a biopsy of a thyroid lesion with Dr. Hernandez (ENT). Sampling was inconclusive, and she is scheduled for further tissue sampling on 01/11/2017. Objective - Review of Systems Generalized/Overall Review: Reports: Malaise EENTM: Reports: No Symptoms Reported Respiratory: Reports: Cough, Shortness of Breath Cardiac: Reports: Chest Pain - Right "rib" pain Abdominal: Reports: No Symptoms Reported Musculoskeletal Complaints: Reports: No Symptoms Reported Neurological: Reports: No Symptoms Reported Skin: Reports: No Symptoms Reported Endocrine: Reports: No Symptoms Reported - Vitals Vitals: Last Vital Signs Temp 36.7 C 01/05/17 06:58 Pulse 72 01/05/17 06:58 Resp 24 H 01/05/17 06:58 BP 128/44 01/05/17 06:58 Pulse Ox 96 01/05/17 06:58 - Abnormal Lab Findings Abnormal Lab Findings: Abnormal Lab Results 01/04/17 01/05/17 01/05/17 Range/Units 15:48 05:35 05:35 RBC 3.71 L (4.2-5.4) M/mm3 Hgb 10.2 L (12.5-16.0) gm/dL Hct 32.2 L (37.0-47.0) % MCHC 31.7 L (32-36) g/dl Band Neuts % (Manual) 8 H (0-2.0) % Lymphocytes % (Manual) 11 L (20-51) % Eosinophils % (Manual) 5 H (0-3) % Neutrophils # (Manual) 7.1 H (1.3-6.0) K/mm3 Lymphocytes # (Manual) 1.0 L (1.5-3.5) k/mm3 BUN 26 H (3-23) mg/dL Est GFR (Non-Af Amer) 55 L (60-130) mL/min BUN/Creatinine Ratio 24.5 H (9.0-21.6) Random Glucose 143 H D (70-110) mg/dL Total Bilirubin 1.4 H (0.0-1.1) mg/dL Direct Bilirubin 0.7 H (0.0-0.3) mg/dL ALT 12 L (19-67) U/L Total Protein 6.1 L (6.2-8.2) gm/dL Albumin 2.2 L (3.4-5.0) gm/dl Urine Protein 100 H (NEGATIVE) mg/dL Urine Glucose (UA) 500 H (NEGATIVE) mg/dL Urine Blood 250 H (NEGATIVE) /ul Urine Bilirubin 1 H (NEGATIVE) mg/dl Urine Ictotest Positive H (NEGATIVE) Prot Sulfosalicylic Acd 4+ H (0) mg/dL Ur Leukocyte Esterase 75 H (NEGATIVE) /ul Urine RBC 10-25 H (0-5) /hpf Urine WBC 5-10 H (0-5) /hpf Urine Bacteria 2+ H (NONE) - Exam Constitutional: Present: Alert, Oriented x3, Cooperative, Mild distress - Distress related to uncontrolled right chest wall pain. ENT Exam: Present: normal ENT inspection, hearing grossly normal, pharynx normal Neck: Present: non-tender Respiratory: Present: crackles - Mild distress related to tachypnea. Crackles and diminished breath sounds in the right middle and right lower lobes. Cardiovascular/Chest: Present: normal peripheral pulses, no murmur, tachycardia , irregularly irregular Abdomen: Present: Normal bowel sounds, soft, nontender Extremity: Present: normal range of motion, non-tender, normal inspection Skin Exam: Present: normal color Lymphatic: Present: no adenopathy Neurologic: Present: admitting manager II-XII nml as tested Appearance: Present: appropriate appearance Eye contact: Present: cooperative, good eye contact, normal speech Thoughts: Present: normal thought pattern Assessment/Plan - Problems/Diagnosis (1) Gross hematuria Problem: Acute Narrative: She underwent cystoscopy on 12/18/2016 showing verrucous squamous hyperplasia and acute on chronic cystitis. (2) Pneumonia Problem: Acute Qualifiers: Pneumonia type: due to unspecified organism Laterality: right Lung location: lower lobe of lung Qualified Code(s): J18.1 - Lobar pneumonia, unspecified organism Narrative: Continue ceftriaxone 1g IV daily and azithromycin 250 mg po daily. Albuterol nebulizers QID. Mucinex BID for cough. (3) Sepsis Problem: Suspected Qualifiers: Sepsis type: sepsis due to unspecified organism Qualified Code(s): A41.9 - Sepsis, unspecified organism Narrative: Lactic acid has normalized. She remains tachycardic. ECG ordered for concern of atrial fibrillation which she has had in the past. Continue management with IV fluids of NS @ 126 ml/hr. (4) Pulmonary embolism Problem: Acute Qualifiers: Pulmonary embolism type: other Chronicity: acute Acute cor pulmonale presence: without acute cor pulmonale Qualified Code(s): I26.99 - Other pulmonary embolism without acute cor pulmonale Narrative: Due to thyroid lesion, she may need further tissue sampling which we cannot obtain while on warfarin. Call placed to Dr. Hernandez. Continue with Lovenox 1mg /kg twice daily. Discontinue warfarin. Depending on results of consultation with ENT, may need to consider transitioning to IV heparin if further procedure is warranted. (5) Diabetes Problem: Acute Qualifiers: Diabetes mellitus type: type 2 Diabetes mellitus complication status: with hyperglycemia Diabetes mellitus technician terminal and repeater insulin use: with technician terminal and repeater use Qualified Code(s): E11.65 - Type 2 diabetes mellitus with hyperglycemia; Z79.4 - care home (current) use of insulin Narrative: Discontinue metformin while inpatient. Most recent A1C is 7.4% on 10/16/2016. Continue Humulin 70/30 55 units with breakfast. If she will need to be NPO, consider transitioning to Lantus or Levemir and Humalog while hospitalized. Accuchecks twice daily. She is currently on a statin (atorvastatin), aspirin 81 mg daily, and ACEI (lisinopril). (6) Hypertension Problem: Chronic Qualifiers: Hypertension type: essential hypertension Qualified Code(s): I10 - Essential (primary) hypertension Narrative: Continue lisinopril/HCTZ 20/25 mg daily. Consider adding a beta-derrick if pending ECG is remarkable for a-fib.
[2017-01-05] MEDS: ASPIRIN 81 MG TAB.CHEW PO SCH (10:00)
[2017-01-05] MEDS: AZITHROMYCIN 250 MG TABLET PO SCH (10:00)
[2017-01-05] MEDS: ENOXAPARIN SODIUM 100 MG, ENOXAPARIN SODIUM 40 MG SC SCH ×4 (10:01→22:12)
[2017-01-05] MEDS: POTASSIUM CHLORIDE 20 MEQ TABLET.SA PO SCH ×2 (10:04→21:07)
[2017-01-05] MEDS: HYDROCHLOROTHIAZIDE 25 MG TABLET PO SCH (10:04)
[2017-01-05] MEDS: OXYBUTYNIN CHLORIDE 5 MG TABLET PO SCH ×2 (10:05→21:07)
[2017-01-05] MEDS: LISINOPRIL 40 MG TABLET PO SCH (10:05)
[2017-01-05] MEDS: GABAPENTIN 100 MG CAPSULE PO SCH ×3 (10:05→16:33)
[2017-01-05] MEDS ORDERED: FLECAINIDE ACETATE 100 MG TABLET PO STA (10:10)
[2017-01-05] MEDS: INSUL NPH HU REC/INS RG HU REC 100 UNITS/ML VIAL SC SCH (10:12)
[2017-01-05] MEDS: METOPROLOL SUCCINATE 100 MG TABLET.SA PO SCH (16:33)
[2017-01-05] MEDS: FLECAINIDE ACETATE 100 MG TABLET PO SCH (21:07)
[2017-01-05] MEDS: PRAMIPEXOLE DI-HCL 0.5 MG TABLET PO SCH (21:07)
[2017-01-05] MEDS: ROSUVASTATIN CALCIUM 10 MG TABLET PO SCH (21:07)
[2017-01-06] MEDS: HYDROcodone/ACETAMINOPHEN 1 EACH TABLET PO PRN ×4 (03:47→19:45)
[2017-01-06 06:13] LABS: Prothrombin Time (Patient) 10.5 Seconds (9.4-11.4)
[2017-01-06 06:15] LABS: INR 1.01 INR (0.90-1.10)
[2017-01-06] MEDS: PANTOPRAZOLE SODIUM 40 MG TABLET.EC PO SCH (06:38)
[2017-01-06] MEDS: INSULIN REGULAR, HUMAN 100 UNITS/ML VIAL SC SCH ×3 (07:40→17:04)
[2017-01-06] MEDS: AZITHROMYCIN 250 MG TABLET PO SCH (09:16)
[2017-01-06] MEDS: FLECAINIDE ACETATE 100 MG TABLET PO SCH ×2 (09:16→21:10)
[2017-01-06] MEDS: POTASSIUM CHLORIDE 20 MEQ TABLET.SA PO SCH ×2 (09:17→21:10)
[2017-01-06] MEDS: GABAPENTIN 100 MG CAPSULE PO SCH ×3 (09:17→17:27)
[2017-01-06] MEDS: LISINOPRIL 40 MG TABLET PO SCH (09:18)
[2017-01-06] MEDS: HYDROCHLOROTHIAZIDE 25 MG TABLET PO SCH (09:18)
[2017-01-06] MEDS: OXYBUTYNIN CHLORIDE 5 MG TABLET PO SCH ×2 (09:19→21:10)
[2017-01-06] MEDS: ENOXAPARIN SODIUM 100 MG, ENOXAPARIN SODIUM 40 MG SC SCH ×4 (09:19→21:13)
[2017-01-06] MEDS: ASPIRIN 81 MG TAB.CHEW PO SCH (09:19)
[2017-01-06] MEDS: INSUL NPH HU REC/INS RG HU REC 100 UNITS/ML VIAL SC SCH (09:20)
[2017-01-06] MEDS ORDERED: DEXTROSE 4 GM/TAB BTL ONE (16:07)
[2017-01-06] MEDS: METOPROLOL SUCCINATE 100 MG TABLET.SA PO SCH (17:26)
--- NOTE | 2017-01-06 18:55 | PN ---
Subjective - Date and Time Seen Date: 01/06/17 Time: 18:44 Subjective Narrative: Patient gets SOB with minimal activity in bed, ambulates to the bathroom and back with walker. On 2L O2. Feels better than on 01/04/2017. Objective - Review of Systems Generalized/Overall Review: Denies: Chills, Fever Respiratory: Reports: Cough, Shortness of Breath Cardiac: Reports: Palpitations. Denies: Chest Pain, Edema - Vitals Vitals: Vital Signs Temp 37.4 C 01/06/17 15:12 Pulse 113 H 01/06/17 17:26 Resp 20 01/06/17 15:12 BP 127/56 01/06/17 17:26 Pulse Ox 100 2L 01/06/17 15:12 - EKG/Xray Findings EKG: other - strip - 115/min irreg irreg - Exam Constitutional: Present: Middle aged, Morbidly obese - On 2 L O2, in NAD, alert and oriented 3, cooperative. ENT Exam: Present: hearing grossly normal, moist mucous membranes Respiratory: Present: crackles - Right lung base, decreased breath sounds overall due to morbid obesity, no accessory muscle use. Cardiovascular/Chest: Present: tachycardia, irregularly irregular Abdomen: Present: Normal bowel sounds, soft, nontender - Morbidly obese Extremity: Present: normal inspection - Trace pedal edema Skin Exam: Present: normal color, warm/dry Assessment/Plan Plan Narrative: 1. Bacteremia due to strep pneumonia: Patient on CTX 1 g IV BID daily. Continue for a period of 10-14 days. Consider outpatient IV antibiotics once patient is clinically stable. 2. RT.L.L pneumonia: Continue CTX 1 gram IV BID and azithromycin 500 mg IV daily. 3. S/P P.E: Small PE in R.U.L. pulmonary arterial branch. Patient may benefit from treatment for 3 months because of multiple risk factors including morbid obesity , A. fib with RVR, HTN etc. 4. Thyroid nodules: Discussed with Dr. Wisdom [ENT] regarding surgery next week. 5. T2 DM: Continue Lantus 55 units in a.m. with sliding scale. 6. HTN: Chronic and stable. Continue lisinopril 40 mg PO in AM and metoprolol ER 100 mg PO in PM. 7. Chronic A. fib: On flecainide 100 mg PO BID.
[2017-01-06 19:10] LABS: Iron 24 mcg/dL (35-120); Transferrin Sat. (% Sat.) 12 % (15-55)
[2017-01-06] MEDS: ROSUVASTATIN CALCIUM 10 MG TABLET PO SCH (21:09)
[2017-01-06] MEDS: PRAMIPEXOLE DI-HCL 0.5 MG TABLET PO SCH (21:10)
[2017-01-06] MEDS: SACCHAROMYCES BOULARDII 250 MG CAPSULE PO SCH (21:11)
[2017-01-07] MEDS: HYDROcodone/ACETAMINOPHEN 1 EACH TABLET PO PRN ×2 (00:37→10:41)
[2017-01-07 05:32] LABS: Hematocrit 32.9 % (37.0-47.0); Hemoglobin 10.6 gm/dL (12.5-16.0); Mean Cell Volume 85.5 fl (78-100); Mean Corpuscular Hemoglobin 27.5 pg (27-31); Mean Corpuscular Hgb Conc 32.2 g/dl (32-36); Mean Platelet Volume 9.4 fl (6.0-9.5); Neutrophil # 2.7 K/mm3 (1.3-6.0); Neutrophil % 47.4 % (42-75.0); Platelet Count 249 K/mm3 (150-450); Red Blood Count 3.85 M/mm3 (4.2-5.4); Red Cell Distribution Width 13.3 % (11.5-14.0); White Blood Count 5.8 K/mm3 (4.0-10.5)
[2017-01-07 06:15] LABS: Albumin * 2.1 gm/dl (3.4-5.0); Anion Gap 11.3 mmol/L (6.8-13.8); BUN/Creatinine Ratio 10.8 (9.0-21.6); Bilirubin, Total 0.9 mg/dL (0.0-1.1); Ca. Corrected For Albumin 10.2 mg/dL (8.4-10.2); Carbon Dioxide 26.4 mmol/L (24-32.6); Potassium 3.7 mmol/L (3.4-4.6); Total Protein 6.4 gm/dL (6.2-8.2)
[2017-01-07] MEDS: PANTOPRAZOLE SODIUM 40 MG TABLET.EC PO SCH (07:33)
[2017-01-07] MEDS: INSULIN REGULAR, HUMAN 100 UNITS/ML VIAL SC SCH ×3 (07:34→16:54)
[2017-01-07] MEDS: AZITHROMYCIN 500 MG in DEXTROSE 5 % IN WATER 250 ML IV SCH ×2 (08:23)
[2017-01-07] MEDS: POTASSIUM CHLORIDE 20 MEQ TABLET.SA PO SCH ×2 (08:41→20:33)
[2017-01-07] MEDS: OXYBUTYNIN CHLORIDE 5 MG TABLET PO SCH ×2 (08:41→20:34)
[2017-01-07] MEDS: LISINOPRIL 40 MG TABLET PO SCH (08:42)
[2017-01-07] MEDS: HYDROCHLOROTHIAZIDE 25 MG TABLET PO SCH (08:42)
[2017-01-07] MEDS: ASPIRIN 81 MG TAB.CHEW PO SCH (08:43)
[2017-01-07] MEDS: GABAPENTIN 100 MG CAPSULE PO SCH ×3 (08:43→16:54)
[2017-01-07] MEDS: INSUL NPH HU REC/INS RG HU REC 100 UNITS/ML VIAL SC SCH (08:44)
[2017-01-07] MEDS: SACCHAROMYCES BOULARDII 250 MG CAPSULE PO SCH ×2 (08:51→20:32)
[2017-01-07] MEDS: FLECAINIDE ACETATE 100 MG TABLET PO SCH ×2 (08:53→20:35)
[2017-01-07] MEDS: ENOXAPARIN SODIUM 100 MG, ENOXAPARIN SODIUM 40 MG SC SCH ×4 (09:27→21:22)
--- NOTE | 2017-01-07 11:10 | PN ---
Subjective - Date and Time Seen Date: 01/07/17 Time: 11:09 Subjective Narrative: Mrs. Albert reports difficulty sleeping. She has been awake since 4 AM. She continues to complain of pain in the right side of her chest wall. She had increasing oxygen requirements today. She has been ambulating with physical therapy. Appetite is good. No nausea or vomiting. Overall, she feels well. Still dyspneic with exertion. Objective - Review of Systems Generalized/Overall Review: Reports: No Symptoms Reported, Fatigue EENTM: Reports: No Symptoms Reported Respiratory: Reports: Cough - Right sided "rib" pain Cardiac: Reports: No Symptoms Reported Abdominal: Reports: No Symptoms Reported, Constipation Genitourinary Symptoms: Reports: No Symptoms Reported Musculoskeletal Complaints: Reports: No Symptoms Reported Neurological: Reports: No Symptoms Reported Skin: Reports: No Symptoms Reported Endocrine: Reports: No Symptoms Reported - Vitals Vitals: Last Vital Signs Temp 36.8 C 01/07/17 10:18 Pulse 96 01/07/17 10:18 Resp 17 01/07/17 10:18 BP 142/74 01/07/17 10:18 Pulse Ox 96 01/07/17 10:18 - Abnormal Lab Findings Abnormal Lab Findings: Abnormal Lab Results 01/06/17 01/07/17 01/07/17 Range/Units 05:17 05:00 05:00 RBC 3.85 L (4.2-5.4) M/mm3 Hgb 10.6 L (12.5-16.0) gm/dL Hct 32.9 L (37.0-47.0) % Immature Gran % (Auto) 0.90 H (0.001-0.429) % Immature Gran # (Auto) 0.05 H (0.000-0.0310) K/mm3 Monocytes % 16.6 H (0.0-9) % Eosinophils % 5.5 H (0.0-3.0) % Est GFR (Non-Af Amer) 57 L (60-130) mL/min Random Glucose 208 H D (70-110) mg/dL Iron 24 L (35-120) mcg/dL TIBC 198 L (260-445) mcg/dL Transferrin % Sat 12 L (15-55) % Albumin 2.1 L (3.4-5.0) gm/dl - Exam Constitutional: Present: Alert, Oriented x3, Cooperative, Looks Older than stated age ENT Exam: Present: normal ENT inspection Neck: Present: non-tender Respiratory: Present: crackles - Right mid lobe, RLL and LLL Cardiovascular/Chest: Present: normal peripheral pulses, irregularly irregular Abdomen: Present: Normal bowel sounds, soft, nontender Extremity: Present: normal range of motion, non-tender, normal inspection, no pedal edema Skin Exam: Present: normal color, warm/dry, no cyanosis Lymphatic: Present: no adenopathy Neurologic: Present: religion professor II-XII nml as tested Appearance: Present: appropriate appearance, appropriate insight Eye contact: Present: cooperative, good eye contact Thoughts: Present: normal thought pattern Assessment/Plan Plan Narrative: 1. Bacteremia due to strep pneumonia: Patient on CTX 1 g IV BID daily. Continue for a period of 10-14 days (she is currently on day #4 of antibiotics). 2. Right lower lobe pneumonia: Continue CTX 1 gram IV BID and azithromycin 500 mg IV daily. 3. S/P P.E: Small PE in R.U.L. pulmonary arterial branch. Patient may benefit from treatment for 3 months because of multiple risk factors including morbid obesity , A. fib with RVR, HTN etc. Since no ENT surgical intervention planned, resume warfarin per pharmacy protocol. 4. Thyroid nodules: Discussed with Dr. Wisdom [ENT] today. No surgical intervention as she has bacteremia. 5. T2 DM: Continue NPH/regular 70/30 insulin 55 units in a.m. with sliding scale with meals only. 6. HTN: Chronic and stable. Continue lisinopril 40 mg PO in AM and metoprolol ER 100 mg PO in PM. 7. Chronic atrial fibrillation: Continue flecainide 100 mg PO BID. 8. Constipation: Senna 17.2 mg po QHS and metamucil capsule daily.
[2017-01-07] MEDS ORDERED: IRON SUCROSE COMPLEX 500 MG in NORMAL SALINE 250 ML IV PRN (11:21)
[2017-01-07] MEDS ORDERED: diphenhydrAMINE HCL 50 MG/ML VIAL IV PRN (11:30)
[2017-01-07] MEDS ORDERED: FERUMOXYTOL 30 MG/ML VIAL IV ONE (12:00)
[2017-01-07] MEDS ORDERED: ERGOCALCIFEROL 50000 UNIT TABLET PO SCH (12:00)
[2017-01-07] MEDS: PSYLLIUM SEED 1 PACKET PACKET PO SCH (12:25)
[2017-01-07] MEDS ORDERED: IRON SUCROSE COMPLEX 500 MG in NORMAL SALINE 250 ML IV ONE (13:00)
[2017-01-07] MEDS: WARFARIN SODIUM 5 MG TABLET PO SCH (16:54)
[2017-01-07] MEDS: METOPROLOL SUCCINATE 100 MG TABLET.SA PO SCH (16:54)
[2017-01-07] MEDS: PRAMIPEXOLE DI-HCL 0.5 MG TABLET PO SCH (20:32)
[2017-01-07] MEDS: ROSUVASTATIN CALCIUM 10 MG TABLET PO SCH (20:33)
[2017-01-07] MEDS: SENNOSIDES 8.6 MG TABLET PO SCH (20:35)
[2017-01-08] MEDS: HYDROcodone/ACETAMINOPHEN 1 EACH TABLET PO PRN ×4 (01:55→20:24)
[2017-01-08 06:33] LABS: Hematocrit 37.4 % (37.0-47.0); Hemoglobin 12.1 gm/dL (12.5-16.0); Mean Cell Volume 86.6 fl (78-100); Mean Corpuscular Hgb Conc 32.4 g/dl (32-36); Neutrophil % 47.8 % (42-75.0); Platelet Count 263 K/mm3 (150-450); Red Blood Count 4.32 M/mm3 (4.2-5.4); Red Cell Distribution Width 13.3 % (11.5-14.0); White Blood Count 6.3 K/mm3 (4.0-10.5)
[2017-01-08] MEDS: INSULIN REGULAR, HUMAN 100 UNITS/ML VIAL SC SCH ×3 (06:37→17:11)
[2017-01-08] MEDS: PANTOPRAZOLE SODIUM 40 MG TABLET.EC PO SCH (06:38)
[2017-01-08 06:42] LABS: INR 1.06 INR (0.90-1.10)
[2017-01-08] MEDS: AZITHROMYCIN 500 MG in DEXTROSE 5 % IN WATER 250 ML IV SCH ×2 (07:56)
[2017-01-08] MEDS: ASPIRIN 81 MG TAB.CHEW PO SCH (08:29)
[2017-01-08] MEDS: GABAPENTIN 100 MG CAPSULE PO SCH ×3 (08:29→16:07)
[2017-01-08] MEDS: PSYLLIUM SEED 1 PACKET PACKET PO SCH ×2 (08:29→15:25)
[2017-01-08] MEDS: SACCHAROMYCES BOULARDII 250 MG CAPSULE PO SCH ×2 (08:29→20:23)
[2017-01-08] MEDS: POTASSIUM CHLORIDE 20 MEQ TABLET.SA PO SCH ×2 (08:29→20:24)
[2017-01-08] MEDS: HYDROCHLOROTHIAZIDE 25 MG TABLET PO SCH (08:29)
[2017-01-08] MEDS: OXYBUTYNIN CHLORIDE 5 MG TABLET PO SCH ×2 (08:29→20:23)
[2017-01-08] MEDS: FLECAINIDE ACETATE 100 MG TABLET PO SCH ×2 (08:30→20:23)
[2017-01-08] MEDS: LISINOPRIL 40 MG TABLET PO SCH (08:30)
[2017-01-08] MEDS: INSUL NPH HU REC/INS RG HU REC 100 UNITS/ML VIAL SC SCH (08:31)
[2017-01-08] MEDS: ENOXAPARIN SODIUM 100 MG, ENOXAPARIN SODIUM 40 MG SC SCH ×4 (09:48→21:04)
--- NOTE | 2017-01-08 10:32 | PN ---
Subjective - Date and Time Seen Date: 01/08/17 Time: 10:32 Subjective Narrative: Patient feeling much stronger. Able to ambulate with walker out in the halls. Denies any palpitations in ambulation. No BM. SOB gradually improving. Denies any sputum production. Has painful cold sores around mouth. Objective - Review of Systems Generalized/Overall Review: Denies: Weakness, Chills, Fever Respiratory: Reports: Shortness of Breath. Denies: Orthopnea, Wheezing Cardiac: Denies: Chest Pain, Edema, Palpitations - Vitals Vitals: Vital Signs Temp 36.6 C 01/08/17 10:27 Pulse 93 01/08/17 10:27 Resp 20 01/08/17 10:27 BP 151/79 01/08/17 10:27 Pulse Ox 92 01/08/17 10:27 - Abnormal Lab Findings Abnormal Lab Findings: Laboratory Tests 01/08/17 06:26 WBC 6.3 Hgb 12.1 L Hct 37.4 Plt Count 263 - EKG/Xray Findings EKG: atrial fibrillation - on EKG strip - Exam Constitutional: Present: Middle aged - Alert and oriented 3, cooperative. ENT Exam: Present: hearing grossly normal, moist mucous membranes - multiple sores round mouth Neck: Present: normal inspection, trachea midline Cardiovascular/Chest: Present: regular rate, rhythm Abdomen: Present: Normal bowel sounds, soft, nontender - morbidly obese Extremity: Present: normal range of motion, normal inspection, no pedal edema - pedal pulses intact Skin Exam: Present: warm/dry Assessment/Plan Plan Narrative: Plan Narrative: 1. Bacteremia due to strep pneumonia: Patient on CTX 1 g IV BID daily. day #5 Continue for a period of 10-14 days. Consider outpatient IV antibiotics once patient is clinically stable and then oral. possible D/C 01/11/2017. patient weaned off O2. 2. Thyroid nodules: Discussed with Dr. Lu [ENT] on 01/07/2017 who felt surgery was not an immediate necessity and could be done in the next 1-2 months when the patient was more medically stable. Patient will therefore be restarted on warfarin. 3. RT.L.L pneumonia: CXR on 01/07/2017 showed improvement in opacification in R.M.L and R.L.L. 4. S/P P.E: Small PE in R.U.L. pulmonary arterial branch. Patient may benefit from treatment for 3 months because of multiple risk factors including morbid obesity , A. fib with RVR, HTN etc. On Lovenox 140 mg SQ BID, started on warfarin 5 mg PO daily. Pharmacy to follow PT/INR and make adjustments daily. 5. T2 DM: Continue Lantus 55 units in a.m. with sliding scale. Start metformin ER with evening meal. 6. HTN: Chronic and stable. Continue lisinopril 40 mg PO in AM and metoprolol ER 100 mg PO in PM. 7. Chronic A. fib: On flecainide 100 mg PO BID. On anticoagulation with warfarin 5 mg daily and Lovenox 140 mg SQ BID. 8. Morbid obesity: BMI 47.0 will need sleep studies on an outpatient basis for MÓNICA.
[2017-01-08] MEDS ORDERED: BISACODYL 5 MG TABLET.DR PO PRN (10:37)
[2017-01-08] MEDS ORDERED: BISACODYL 5 MG TABLET.DR PO STA (10:48)
[2017-01-08] MEDS: valACYclovir HCL 500 MG TABLET PO SCH ×2 (11:50→20:23)
[2017-01-08] MEDS: WARFARIN SODIUM 5 MG TABLET PO SCH (16:06)
[2017-01-08] MEDS: METOPROLOL SUCCINATE 100 MG TABLET.SA PO SCH (16:07)
[2017-01-08] MEDS ORDERED: BISACODYL 5 MG TABLET.DR PO ONE (19:22)
[2017-01-08] MEDS ORDERED: BISACODYL 5 MG TABLET.DR ONE (20:22)
[2017-01-08] MEDS: PRAMIPEXOLE DI-HCL 0.5 MG TABLET PO SCH (20:23)
[2017-01-08] MEDS: ROSUVASTATIN CALCIUM 10 MG TABLET PO SCH (20:23)
[2017-01-08] MEDS: SENNOSIDES 8.6 MG TABLET PO SCH (20:24)
[2017-01-09] MEDS: HYDROcodone/ACETAMINOPHEN 1 EACH TABLET PO PRN ×4 (00:57→18:38)
[2017-01-09 05:53] LABS: Prothrombin Time (Patient) 11.4 Seconds (9.4-11.4)
[2017-01-09 05:57] LABS: INR 1.1 INR (0.90-1.10)
[2017-01-09] MEDS: PANTOPRAZOLE SODIUM 40 MG TABLET.EC PO SCH (07:00)
[2017-01-09] MEDS: INSULIN REGULAR, HUMAN 100 UNITS/ML VIAL SC SCH ×3 (07:02→16:52)
[2017-01-09] MEDS: GABAPENTIN 100 MG CAPSULE PO SCH ×3 (08:13→16:47)
[2017-01-09] MEDS: FLECAINIDE ACETATE 100 MG TABLET PO SCH ×2 (08:13→20:16)
[2017-01-09] MEDS: SACCHAROMYCES BOULARDII 250 MG CAPSULE PO SCH ×2 (08:13→20:18)
[2017-01-09] MEDS: LISINOPRIL 40 MG TABLET PO SCH (08:14)
[2017-01-09] MEDS: OXYBUTYNIN CHLORIDE 5 MG TABLET PO SCH ×2 (08:14→20:19)
[2017-01-09] MEDS: POTASSIUM CHLORIDE 20 MEQ TABLET.SA PO SCH ×2 (08:14→20:18)
[2017-01-09] MEDS: PSYLLIUM SEED 1 PACKET PACKET PO SCH (08:15)
[2017-01-09] MEDS: ASPIRIN 81 MG TAB.CHEW PO SCH (08:15)
[2017-01-09] MEDS: HYDROCHLOROTHIAZIDE 25 MG TABLET PO SCH (08:15)
[2017-01-09] MEDS: INSUL NPH HU REC/INS RG HU REC 100 UNITS/ML VIAL SC SCH (08:18)
[2017-01-09] MEDS: AZITHROMYCIN 500 MG in DEXTROSE 5 % IN WATER 250 ML IV SCH ×2 (08:19)
[2017-01-09] MEDS: ENOXAPARIN SODIUM 100 MG, ENOXAPARIN SODIUM 40 MG SC SCH ×4 (10:29→22:08)
[2017-01-09] MEDS: CHOLECALCIFEROL 5,000 UNIT TABLET PO SCH (12:45)
[2017-01-09] MEDS: FERROUS SULFATE 325 MG TABLET PO SCH ×2 (12:45→16:45)
--- NOTE | 2017-01-09 14:04 | PN ---
Subjective - Date and Time Seen Date: 01/09/17 Time: 07:30 Subjective Narrative: Doing much better. Almost back to baseline. Less SOB. Walking some. Good appetite. Objective - Review of Systems Generalized/Overall Review: Reports: Malaise EENTM: Reports: No Symptoms Reported Respiratory: Reports: Shortness of Breath Cardiac: Reports: No Symptoms Reported Abdominal: Reports: No Symptoms Reported Genitourinary Symptoms: Reports: No Symptoms Reported Musculoskeletal Complaints: Reports: No Symptoms Reported Neurological: Reports: No Symptoms Reported Skin: Reports: No Symptoms Reported Endocrine: Reports: No Symptoms Reported Misc: All systems neg except as marked - Vitals Vitals: Last Vital Signs Selected Entries 01/09/17 06:23 Temperature 36.7 C Temperature Oral Source Pulse Rate 98 Respiratory 20 Rate Blood Pressure 156/70 O2 Sat by Pulse 94 Oximetry Oxygen Delivery Room Air Method - Exam Constitutional: Present: Alert, Oriented x3, Cooperative, Well developed, Morbidly obese ENT Exam: Present: normal ENT inspection, other - healing cold sores on lips Neck: Present: normal inspection Respiratory: Present: lungs clear, no respiratory distress Cardiovascular/Chest: Present: regular rate, rhythm, no murmur Abdomen: Present: Normal bowel sounds, soft, nontender, nondistended, no rebound tenderness, no hepatospenomegaly, no masses, obese Extremity: Present: normal range of motion, normal inspection Skin Exam: Present: normal color, warm/dry, no cyanosis Neurologic: Present: alert, oriented x 3 Appearance: Present: appropriate appearance, appropriate insight, neat, no memory impairment Eye contact: Present: cooperative, good eye contact, normal speech Thoughts: Present: normal thought pattern Assessment/Plan Plan Narrative: Walk in halls. Same treatment. Follow labs. Home in 2 days. - Problems/Diagnosis (1) Diabetes Problem: Acute Qualifiers: Diabetes mellitus type: type 2 Diabetes mellitus complication status: with hyperglycemia Diabetes mellitus intermediate accountant insulin use: with correction use Qualified Code(s): E11.65 - Type 2 diabetes mellitus with hyperglycemia; Z79.4 - [facility] (current) use of insulin (2) Pneumonia Problem: Acute Qualifiers: Pneumonia type: due to unspecified organism Laterality: right Lung location: lower lobe of lung Qualified Code(s): J18.1 - Lobar pneumonia, unspecified organism (3) Atrial fibrillation Problem: Chronic Qualifiers: Atrial fibrillation type: unspecified Qualified Code(s): I48.91 - Unspecified atrial fibrillation (4) Hyperlipidemia Problem: Chronic Qualifiers: Hyperlipidemia type: unspecified Qualified Code(s): E78.5 - Hyperlipidemia , unspecified (5) Hypertension Problem: Chronic Qualifiers: Hypertension type: essential hypertension Qualified Code(s): I10 - Essential (primary) hypertension (6) Morbid obesity Problem: Chronic Qualifiers: Obesity type: due to excess calories Qualified Code(s): E66.01 - Morbid ( severe) obesity due to excess calories (7) Pulmonary embolism Problem: Acute Qualifiers: Pulmonary embolism type: other Chronicity: acute Acute cor pulmonale presence: without acute cor pulmonale Qualified Code(s): I26.99 - Other pulmonary embolism without acute cor pulmonale
[2017-01-09] MEDS: WARFARIN SODIUM 7.5 MG TABLET PO SCH (16:45)
[2017-01-09] MEDS: METOPROLOL SUCCINATE 100 MG TABLET.SA PO SCH (16:47)
[2017-01-09] MEDS: PRAMIPEXOLE DI-HCL 0.5 MG TABLET PO SCH (20:19)
[2017-01-09] MEDS: ROSUVASTATIN CALCIUM 10 MG TABLET PO SCH (20:19)
[2017-01-09] MEDS: SENNOSIDES 8.6 MG TABLET PO SCH (20:21)
[2017-01-10 06:06] LABS: Hemoglobin 11.2 gm/dL (12.5-16.0); Mean Cell Volume 86.2 fl (78-100); Mean Corpuscular Hemoglobin 27.6 pg (27-31); Mean Platelet Volume 9.3 fl (6.0-9.5); Platelet Count 341 K/mm3 (150-450); Red Blood Count 4.06 M/mm3 (4.2-5.4); Red Cell Distribution Width 13.8 % (11.5-14.0); White Blood Count 8.7 K/mm3 (4.0-10.5)
[2017-01-10 06:09] LABS: Total Cells Counted 100
[2017-01-10 06:17] LABS: Prothrombin Time (Patient) 12.1 Seconds (9.4-11.4)
[2017-01-10 06:19] LABS: Anion Gap 13.8 mmol/L (6.8-13.8); BUN/Creatinine Ratio 12.6 (9.0-21.6); Calcium * 9.5 mg/dL (7.9-10.9); Carbon Dioxide 26.3 mmol/L (24-32.6); Estimated Creat Clear 52.3; Potassium 4.1 mmol/L (3.4-4.6)
[2017-01-10 06:27] LABS: INR 1.16 INR (0.90-1.10)
[2017-01-10 06:31] LABS: Atypical (Reactive) Lymph 4 % (0-2); Eosinophil 3 % (0-3); Lymphocyte 25 % (20-51); Monocyte 6 % (0-9); Neutrophil 62 % (42-75); Neutrophil # 5.4 K/mm3 (1.3-6.0); Platelet Estimate Normal (NORMAL); RBC Morphology Normal (NORMAL)
[2017-01-10] MEDS: HYDROcodone/ACETAMINOPHEN 1 EACH TABLET PO PRN ×3 (07:02→19:35)
[2017-01-10] MEDS: PANTOPRAZOLE SODIUM 40 MG TABLET.EC PO SCH (07:03)
[2017-01-10] MEDS: INSULIN REGULAR, HUMAN 100 UNITS/ML VIAL SC SCH ×3 (07:05→17:20)
[2017-01-10] MEDS ORDERED: INSUL NPH HU REC/INS RG HU REC 100 UNITS/ML VIAL SC SCH ×2 (07:48→17:00)
[2017-01-10] MEDS: FLECAINIDE ACETATE 100 MG TABLET PO SCH ×2 (08:10→20:17)
[2017-01-10] MEDS: OXYBUTYNIN CHLORIDE 5 MG TABLET PO SCH ×2 (08:10→20:16)
[2017-01-10] MEDS: FERROUS SULFATE 325 MG TABLET PO SCH ×3 (08:10→17:16)
[2017-01-10] MEDS: POTASSIUM CHLORIDE 20 MEQ TABLET.SA PO SCH ×2 (08:11→20:17)
[2017-01-10] MEDS: LISINOPRIL 40 MG TABLET PO SCH (08:11)
[2017-01-10] MEDS: HYDROCHLOROTHIAZIDE 25 MG TABLET PO SCH (08:11)
[2017-01-10] MEDS: GABAPENTIN 100 MG CAPSULE PO SCH ×3 (08:12→17:17)
[2017-01-10] MEDS: ASPIRIN 81 MG TAB.CHEW PO SCH (08:12)
[2017-01-10] MEDS: SACCHAROMYCES BOULARDII 250 MG CAPSULE PO SCH ×2 (08:12→20:16)
[2017-01-10] MEDS: PSYLLIUM SEED 1 PACKET PACKET PO SCH (08:13)
[2017-01-10] MEDS: ENOXAPARIN SODIUM 100 MG, ENOXAPARIN SODIUM 40 MG SC SCH ×4 (10:10→22:20)
--- NOTE | 2017-01-10 10:37 | PN ---
Subjective - Date and Time Seen Date: 01/10/17 Time: 06:30 Subjective Narrative: Doing much better. Almost back to baseline. Less SOB. Walking some. Good appetite. Objective - Review of Systems Generalized/Overall Review: Reports: No Symptoms Reported EENTM: Reports: No Symptoms Reported Respiratory: Reports: Cough Cardiac: Reports: No Symptoms Reported Abdominal: Reports: No Symptoms Reported Genitourinary Symptoms: Reports: No Symptoms Reported Musculoskeletal Complaints: Reports: No Symptoms Reported Neurological: Reports: No Symptoms Reported Skin: Reports: No Symptoms Reported Endocrine: Reports: No Symptoms Reported Misc: All systems neg except as marked - Vitals Vitals: Last Vital Signs Selected Entries 01/10/17 06:21 Temperature 36.7 C Temperature Oral Source Pulse Rate 82 Respiratory 20 Rate Blood Pressure 148/74 O2 Sat by Pulse 94 Oximetry - Abnormal Lab Findings Abnormal Lab Findings: Abnormal Lab Results 01/10/17 01/10/17 01/10/17 Range/Units 04:50 04:50 04:50 RBC 4.06 L (4.2-5.4) M/mm3 Hgb 11.2 L (12.5-16.0) gm/dL Hct 35.0 L (37.0-47.0) % Atypic/Reactive Lymphs 4 H (0-2) % PT 12.1 H (9.4-11.4) Seconds INR (Anticoag Therapy) 1.16 H (0.90-1.10) INR Random Glucose 240 H (70-110) mg/dL - Exam Constitutional: Present: Alert, Oriented x3, Cooperative, Well developed, No distress, Morbidly obese ENT Exam: Present: normal ENT inspection, hearing grossly normal Neck: Present: normal inspection Respiratory: Present: lungs clear, normal breath sounds, no respiratory distress Cardiovascular/Chest: Present: regular rate, rhythm, no murmur Abdomen: Present: Normal bowel sounds, soft, nontender, nondistended, no rebound tenderness, no hepatospenomegaly, no masses, obese Extremity: Present: normal range of motion, no pedal edema Skin Exam: Present: normal color, warm/dry, no cyanosis Neurologic: Present: alert, oriented x 3 Appearance: Present: appropriate appearance, appropriate insight, neat, no memory impairment Eye contact: Present: cooperative, good eye contact, normal speech Thoughts: Present: normal thought pattern Assessment/Plan Plan Narrative: Blood sugars elevated. Higher doses of metformin caused diarrhea in the past. Will increase insulin dose. Possibly home tomorrow. - Problems/Diagnosis (1) Diabetes Problem: Acute Qualifiers: Diabetes mellitus type: type 2 Diabetes mellitus complication status: with hyperglycemia Diabetes mellitus halfway insulin use: with rn long term care use Qualified Code(s): E11.65 - Type 2 diabetes mellitus with hyperglycemia; Z79.4 - [facility] (current) use of insulin (2) Pneumonia Problem: Acute Qualifiers: Pneumonia type: due to unspecified organism Laterality: right Lung location: lower lobe of lung Qualified Code(s): J18.1 - Lobar pneumonia, unspecified organism (3) Atrial fibrillation Problem: Chronic Qualifiers: Atrial fibrillation type: unspecified Qualified Code(s): I48.91 - Unspecified atrial fibrillation (4) Hyperlipidemia Problem: Chronic Qualifiers: Hyperlipidemia type: unspecified Qualified Code(s): E78.5 - Hyperlipidemia , unspecified (5) Hypertension Problem: Chronic Qualifiers: Hypertension type: essential hypertension Qualified Code(s): I10 - Essential (primary) hypertension (6) Morbid obesity Problem: Chronic Qualifiers: Obesity type: due to excess calories Qualified Code(s): E66.01 - Morbid ( severe) obesity due to excess calories (7) Pulmonary embolism Problem: Acute Qualifiers: Pulmonary embolism type: other Chronicity: acute Acute cor pulmonale presence: without acute cor pulmonale Qualified Code(s): I26.99 - Other pulmonary embolism without acute cor pulmonale
[2017-01-10] MEDS: CHOLECALCIFEROL 5,000 UNIT TABLET PO SCH (11:50)
[2017-01-10] MEDS: WARFARIN SODIUM 7.5 MG TABLET PO SCH (17:16)
[2017-01-10] MEDS: METOPROLOL SUCCINATE 100 MG TABLET.SA PO SCH (17:18)
[2017-01-10] MEDS: ROSUVASTATIN CALCIUM 10 MG TABLET PO SCH (20:15)
[2017-01-10] MEDS: PRAMIPEXOLE DI-HCL 0.5 MG TABLET PO SCH (20:15)
[2017-01-10] MEDS: SENNOSIDES 8.6 MG TABLET PO SCH (20:17)
[2017-01-11] MEDS: HYDROcodone/ACETAMINOPHEN 1 EACH TABLET PO PRN ×2 (02:14→07:16)
[2017-01-11 06:00] LABS: Prothrombin Time (Patient) 14.3 Seconds (9.4-11.4)
[2017-01-11 06:05] LABS: INR 1.38 INR (0.90-1.10)
[2017-01-11] MEDS: PANTOPRAZOLE SODIUM 40 MG TABLET.EC PO SCH (06:15)
[2017-01-11 06:18] VITALS: BP 155/73
[2017-01-11] MEDS: INSULIN REGULAR, HUMAN 100 UNITS/ML VIAL SC SCH ×2 (07:12→12:15)
[2017-01-11] MEDS: PSYLLIUM SEED 1 PACKET PACKET PO SCH (09:00)
[2017-01-11] MEDS ORDERED: INSUL NPH HU REC/INS RG HU REC 100 UNITS/ML VIAL SC SCH (09:00)
[2017-01-11] MEDS: ASPIRIN 81 MG TAB.CHEW PO SCH (09:02)
[2017-01-11] MEDS: OXYBUTYNIN CHLORIDE 5 MG TABLET PO SCH (09:02)
[2017-01-11] MEDS: LISINOPRIL 40 MG TABLET PO SCH (09:02)
[2017-01-11] MEDS: SACCHAROMYCES BOULARDII 250 MG CAPSULE PO SCH (09:02)
[2017-01-11] MEDS: FLECAINIDE ACETATE 100 MG TABLET PO SCH (09:02)
[2017-01-11] MEDS: GABAPENTIN 100 MG CAPSULE PO SCH ×2 (09:02→14:02)
[2017-01-11] MEDS: FERROUS SULFATE 325 MG TABLET PO SCH ×2 (09:02→14:02)
[2017-01-11] MEDS: ENOXAPARIN SODIUM 100 MG, ENOXAPARIN SODIUM 40 MG SC SCH ×2 (09:02)
[2017-01-11] MEDS: HYDROCHLOROTHIAZIDE 25 MG TABLET PO SCH (09:02)
[2017-01-11] MEDS: POTASSIUM CHLORIDE 20 MEQ TABLET.SA PO SCH (09:03)
--- NOTE | 2017-01-11 10:33 | DS ---
(1) Streptococcus pneumoniae infection Problem: Acute (2) Bacteremia Problem: Acute (3) Pneumonia Problem: Acute Qualifiers: Pneumonia type: due to unspecified organism Laterality: right Lung location: lower lobe of lung Qualified Code(s): J18.1 - Lobar pneumonia, unspecified organism (4) Pulmonary embolism Problem: Acute Qualifiers: Pulmonary embolism type: other Chronicity: acute Acute cor pulmonale presence: without acute cor pulmonale Qualified Code(s): I26.99 - Other pulmonary embolism without acute cor pulmonale (5) Atrial fibrillation Problem: Chronic Qualifiers: Atrial fibrillation type: paroxysmal Qualified Code(s): I48.0 - Paroxysmal atrial fibrillation (6) Sepsis Problem: Resolved Qualifiers: Sepsis type: Streptococcus group A Qualified Code(s): A40.0 - Sepsis due to streptococcus, group A Description of Stay: ADMISSION DATE: 01.04.2017 DISCHARGE DATE: 01.11.2017 ADMISSION HPI by RITESH Antonio: Kimberli is a 71 year old female with a PMH of afib (on flecinide - pt states she has not been in afib in "many years"), DM, GERD, HTN, HLP, morbid obesity that presented to the ER with c/o cough, chest pain, dyspnea, body aches, chills. ER work up revealed small RUL PE, RML and RLL pneumonia and patient was started on oral azithromycin, iv rocephin, and lovenox sq 1mg/kg. labs revealed wbc 18.7, with 21% bands, lactic acid at 2.7 and went down to 1.5 with sepsis protocol hydration, elevated bilirubin at 3.5, negative rapid influenza, bnp at 3338. patient was given iv morphine for chest pain in the ER. PROBLEM BASED HOSPITAL COURSE: Bacteremia due to strep pneumonia: -Continue IV Rocephin daily through the [facility]. Last dose (for a total of 14 days of treatment) will be given on Wednesday, 01.17.2017. RLL and RML pneumonia secondary to strep pneumo: -Antibiotics as above -Repeat CXR in 4-6 weeks to monitor for resolution Pulmonary Embolism -Small PE in R.U.L. pulmonary arterial branch. Continue Coumadin + Lovenox bridging until INR is therapeutic between 2-3 for >24 hours and then discontinue Lovenox. -Patient referred to [facility] in our [facility] for management -Patient will need at least 3 months of anticoagulation Thyroid Nodules -Surgery on hold for now. Will reschedule with Dr. Wisdom once patients acute concerns have completely resolved. Chronic A. fib: -Patient spontaneously converted back to NSR after her home flecainide was resumed. FOLLOW-UP APPOINTMENTS: PCP, Dr. Husain, within 1-2 weeks [facility] Procedures Performed: none Discharge Disposition: Home self care Disposition: Home self-care Condition: Stable Discharge Activity: Activity as tolerated Discharge Diet: Consistent carbs Referrals: Naya Husain DO [Primary Care Provider] - Problem Oriented Discharge Instructions to Patient/Family: Pulmonary Embolism, Community-Acquired Pneumonia, Adult, [id number] Additional Patient Instructions (free text): Please refer the patient to Cindy in the [facility] for ongoing evaluation and management of Coumadin + Lovenox bridging. Please arrange daily infusions of Rocephin through the [facility]. Patient will receive final infusion dose on 01.17.2017 AT 9:00AM. Follow-up with PCP within 1-2 weeks. 01/20 at 1:45. Prescriptions (Any new or edited meds): Enoxaparin Sodium [Lovenox] 140 mg SC Q12H 7 Days Saccharomyces Boulardii [Florastor] 250 mg PO BID #28 capsule Warfarin Sodium [Coumadin] 7.5 mg PO DAILY@1700 #10 tablet cefTRIAXone SODIUM [Rocephin] 1,000 mg IV Q24H #6 vial Complete Home Medications List: Complete Home Medication List: Atorvastatin Calcium [Lipitor] 10 mg PO HS 03/02/13 Insul NPH Hu Rec/Ins Rg Hu Rec [Novolin 70/30] 55 units SC QAM 03/02/13 Lisinopril/Hydrochlorothiazide [Lisinopril-Hctz 20-25 mg Tab] 2 tab PO DAILY Metoprolol Succinate [Toprol Xl] 100 mg PO QPM 03/02/13 Omeprazole [Prilosec] 40 mg PO DAILY 03/02/13 Potassium Chloride [K-Dur] 20 meq PO BID 03/02/13 Pramipexole Di-HCl [Mirapex] 0.125 mg PO HS 03/02/13 Gabapentin [Neurontin] 200 mg PO TID 12/22/13 Aspirin [Aspirin Chewable] 81 mg PO DAILY #100 tab.chew 08/10/14 metFORMIN HCL [Glucophage] 500 mg PO BIDWM 10/10/16 traMADol HCL [Ultram] 50 mg PO Q8H PRN 10/10/16 Oxybutynin Chloride [Ditropan Xl] 10 mg PO DAILY 01/04/17 Enoxaparin Sodium [Lovenox] 140 mg SC Q12H 7 Days 01/11/17 Flecainide Acetate [Tambocor] 100 mg PO Q12H tablet 01/11/17 Saccharomyces Boulardii [Florastor] 250 mg PO BID #28 capsule 01/11/17 Warfarin Sodium [Coumadin] 7.5 mg PO DAILY@1700 #10 tablet 01/11/17 cefTRIAXone SODIUM [Rocephin] 1,000 mg IV Q24H #6 vial 01/11/17 Amb Orders for Discharge: Sleep Study w\\ Titration Time Frame: 1 Month, Location: Determined By Patient
[2017-01-11] MEDS: CHOLECALCIFEROL 5,000 UNIT TABLET PO SCH (12:15)
== END 2017-01-11 15:06 | disposition home or self-care (01) | DRG 871 ==
LOC: ER 06:58 → MS 10:38
PROVIDERS: ADMIT Nurse Practitioner Critical Care Medicine; ATTEND Internal Medicine
DX: A40.3 Sepsis due to Streptococcus pneumoniae (principal); J18.1 Lobar pneumonia, unspecified organism; I26.99 Other pulmonary embolism without acute cor pulmonale; N30.00 Acute cystitis without hematuria; E87.2 Acidosis; B00.1 Herpesviral vesicular dermatitis; E04.2 Nontoxic multinodular goiter; I48.91 Unspecified atrial fibrillation; I10 Essential (primary) hypertension; E78.5 Hyperlipidemia, unspecified; E11.65 Type 2 diabetes mellitus with hyperglycemia; Z79.4 Long term (current) use of insulin; Z79.82 Long term (current) use of aspirin

== ENCOUNTER 2017-05-29 18:02 | Emergency (ER) | payer MEDICARE ==
--- NOTE | 2017-05-29 19:05 | ERNOTE ---
Lower Extremity HPI - Narrative Date of Service: 05/29/17 - General Lower Extremities Pain: leg: left, knee: left, thigh: left Time Seen by Provider: 05/29/17 18:37 Source: patient - Immun/Allergies/Home Medications Immunizations: IMMUNIZATION HX Immunizations Up to Date Yes History of Influenza Vaccine Yes Hx Pneumococcal Vaccination No Allergies/Adverse Reactions: Allergies Allergy/AdvReac Type Severity Reaction Status Date / Time No Known Allergies Allergy Verified 05/29/17 18:25 Home Medications: HOME MEDICATIONS Atorvastatin Calcium [Lipitor] 10 mg PO HS 03/02/13 [Last Taken 01/11/17 19:00 10] Lisinopril/Hydrochlorothiazide [Lisinopril-Hctz 20-25 mg Tab] 2 tab PO DAILY [Last Taken 01/12/17 08:00] Omeprazole [Prilosec] 40 mg PO DAILY 03/02/13 [Last Taken 01/12/17 08:00] Potassium Chloride [K-Dur] 20 meq PO BID 03/02/13 [Last Taken 01/12/17 08:00] Gabapentin [Neurontin] 200 mg PO TID 12/22/13 [Last Taken 01/12/17 08:00] metFORMIN HCL [Glucophage] 500 mg PO BIDWM 10/10/16 [Last Taken 01/12/17 08:00] Oxybutynin Chloride [Ditropan Xl] 10 mg PO DAILY 01/04/17 [Last Taken 01/12/17 08:00] Flecainide Acetate [Tambocor] 100 mg PO Q12H tablet 01/11/17 [Last Taken 08:00] Levothyroxine Sodium [Synthroid] 75 mcg PO DAILY 04/30/17 [Last Taken Unknown] Metoprolol Succinate [Toprol Xl] 100 mg PO DAILY 04/30/17 [Last Taken Unknown] Pramipexole Di-HCl [Pramipexole Dihydrochloride] 0.125 mg PO DAILY 04/30/17 [ Last Taken Unknown] Warfarin Sodium [Coumadin] 7.5 mg PO MOWEFR 04/30/17 [Last Taken Unknown] Warfarin Sodium [Jantoven] 11.25 mg PO SUTUTHSA 04/30/17 [Last Taken Unknown] HYDROcodone/ACETAMINOPHEN [Hydrocodon-Acetaminophen 5-325] 1 each PO 05/29/17 [ Last Taken Unknown] Insul NPH Hu Rec/Ins Rg Hu Rec [Novolin /30] 20 units SC BID 05/29/17 [Last Taken Unknown] - History of Present Illness Narrative: This is a 71-year-old female with a history of DVT who is presently on Coumadin. Last Coumadin level was checked on Wednesday, which was yesterday, the level was 1.85. The patient says that for the last 3-4 months she has had some mild calf discomfort and a subjective sense of swelling. She says that over the last couple of weeks the discomfort has moved from her calf to the knee and is now up to the middle of the thigh. The patient denies any recent plane trips or car trips. She denies tobacco abuse. She says she's been taking her Coumadin as she is supposed to. She denies any recent trauma she denies fever or chills she denies chest pain or shortness of breath patient denies any other somatic complaints Review of Systems - Review of Systems Constitutional: Present: no symptoms reported EYE: Present: no symptoms reported ENT: Present: no symptoms reported Respiratory: Present: no symptoms reported Cardiology: Present: no symptoms reported Gastrointestinal/Abdominal: Present: no symptoms reported Genitourinary: Present: no symptoms reported Musculoskeletal: Present: no symptoms reported, muscle pain, muscle stiffness, joint swelling, other Skin: Present: no symptoms reported Neurological: Present: no symptoms reported Endocrine: Present: no symptoms reported Hematologic/Lymphatic: Present: See HPI Psych: Present: no symptoms reported - left lower extremity swelling pain All Other Systems: All systems neg except as marked - Patient's Past Medical History Patient History - Medical: Chronic Pain, Diabetes Type 2 Insulin Dependent, GERD , Hypothyroidism, Obesity, Other Patient History - Cardiac/Respiratory: Atrial Fibrillation, Deep Vein Thrombosis , Hypertension, Hyperlipidemia, Pneumonia Patient History - Cancer: No Hx of Cancer Patient History - Surgical Procedures: Cholecystectomy, Total Knee Replacement, Other Patient History - Other: None - Family History Mother Family History - Medical: Family History - Cardiac/Respiratory: CVA/Stroke Family History - Cancer: No pertinent family hx Father Family History - Medical: Family History - Cardiac/Respiratory: Myocardial Infarction Family History - Cancer: No pertinent family hx - Social History Living Situations: spouse Abuse History: No History of abuse Psych History: No pertinent hx Smoking Status: Never smoker Have you smoked in the past 12 months: No Do you dip or chew tobacco: No Alcohol Use: none Drug Use: none - Immunizations Immunizations Up to Date: Yes Hx Pneumococcal Vaccination: No History of Influenza Vaccine: Yes Physical Exam - Physical Exam General Appearance: Present: wd/wn, alert, no apparent distress Head Exam: Present: normal inspection, no evidence of injury Eye Exam: Normal inspection: bilateral, PERRL: bilateral, EOMI: bilateral Ears, Nose, Throat: Present: normal ENT inspection Neck: Present: normal inspection, nontender Respiratory: Present: no respiratory distress, normal breath sounds, no accessory muscle use, chest nontender, lungs clear Cardiovascular/Chest: Present: regular rate, rhythm, no murmur, normal peripheral pulses Gastrointestinal/Abdominal: Present: normal bowel sounds, nontender, nondistended, soft, no organomegaly Back Exam: Present: normal inspection, no CVA tenderness, no vertebral tenderness Extremity Exam: Present: normal inspection, normal range of motion, no edema, other - patient has no erythema. I do not palpate any cords. Neurological Exam: Present: alert, oriented, normal mood/affect, other Skin Exam: Present: normal color, warm/dry Lymphatic Exam: Present: no adenopathy ED Progress - Vital Signs Vital Signs: Vital Signs 05/29/17 18:20 Temperature 36.7 C Pulse Rate 53 L Respiratory 14 Rate Blood Pressure 167/89 O2 Sat by Pulse 98 Oximetry - CT/Ultrasound CT/Ultrasound Narrative: No signs of DVT - Progress/Reassessment Chief Complaint: Lower Extremity Pain/ Injury Departure Clinical Impression: Leg pain - Departure Disposition: Home self-care Condition: Stable Additional Instructions: As we discussed, the ultrasound of her leg does not demonstrate a blood clot. There is still a possibility that you have a blood clot developing, but ultrasound will only pick it up when it is large enough. Consequently if she continued having symptoms for another week he should have your family doctor order a repeat ultrasound. Her Coumadin level is down to 1.6 today it was 1.890 week ago. He did talk with her family doctor about whether he wants to make slight modification to her Coumadin dose Certainly if you develop fever, redness of the skin, anything new or worrisome you should return to the ER immediately. [facility] family doctor and set up a follow-up appointment. Return for new or worrisome symptoms Referrals: Naya Husain DO [Primary Care Provider] -
[2017-05-29 19:16] LABS: Hematocrit 38.1 % (37.0-47.0); Hemoglobin 12.3 gm/dL (12.5-16.0); Mean Cell Volume 86.8 fl (78-100); Mean Corpuscular Hgb Conc 32.3 g/dl (32-36); Neutrophil # 2.3 K/mm3 (1.3-6.0); Neutrophil % 46.3 % (42-75.0); Platelet Count 215 K/mm3 (150-450); Red Blood Count 4.39 M/mm3 (4.2-5.4); Red Cell Distribution Width 13.6 % (11.5-14.0)
[2017-05-29 19:25] LABS: Prothrombin Time (Patient) 16.6 Seconds (9.4-11.4)
[2017-05-29 19:27] LABS: INR 1.6 INR (0.90-1.10)
[2017-05-29 19:29] LABS: Albumin * 3.7 gm/dl (3.4-5.0); Anion Gap 14.5 mmol/L (6.8-13.8); BUN/Creatinine Ratio 13.7 (9.0-21.6); Bilirubin, Total 0.9 mg/dL (0.0-1.1); Calcium * 9.1 mg/dL (7.9-10.9); Carbon Dioxide 25.3 mmol/L (24-32.6); Potassium 3.8 mmol/L (3.4-4.6); Total Protein 7.7 gm/dL (6.2-8.2)
[2017-05-29 20:30] VITALS: BP 113/55
== END 2017-05-29 20:12 | disposition home or self-care (01) ==
LOC: ER 18:02
DX: M79.605 Pain in left leg (principal); E11.9 Type 2 diabetes mellitus without complications; Z79.4 Long term (current) use of insulin; Z86.718 Personal history of other venous thrombosis and embolism; Z79.01 Long term (current) use of anticoagulants

== ENCOUNTER 2019-08-06 18:36 | Inpatient (IN) ==
[2019-08-06] MEDS ORDERED: NORMAL SALINE 1,000 ML IV ONE (19:09)
--- NOTE | 2019-08-06 19:21 | ERNOTE ---
<James Kay - Last Filed: 08/06/19 19:42> Medical Problem HPI - Narrative Date of Service: 08/06/19 - General Chief Complaint: General Assessment Time Seen by Provider: 08/06/19 19:05 Source: patient, family Exam Limitations: clinical condition - Immun/Allergies/Home Medications Immunizations: IMMUNIZATION HX Immunizations Up to Date Yes History of Influenza Vaccine No Hx Pneumococcal Vaccination Yes Allergies/Adverse Reactions: Allergies No Known Allergies Allergy (Verified 08/06/19 18:53) Home Medications: HOME MEDICATIONS insulin human U-100 NPH-regulr 70-30 mix 100 unit/mL subcutaneous susp 20 unit SUB-Q BID ml 04/24/18 [Last Taken Unknown] triamcinolone acetonide 0.1 % topical cream 1 applic TP TID PRN 04/24/18 [Last Taken Unknown] furosemide 40 mg tablet 40 mg PO DAILY PRN tab 08/18/18 [Last Taken Unknown] warfarin 7.5 mg tablet 7.5 mg PO DAILY #90 tab 12/21/18 [Last Taken Unknown] ferrous sulfate 325 mg (65 mg iron) tablet 325 mg PO DAILY #90 tab 03/17/19 [Last Taken Unknown] gabapentin 300 mg capsule 300 mg PO TID #90 cap 03/17/19 [Last Taken Unknown] atorvastatin 10 mg tablet 10 mg PO HS #90 tab 03/22/19 [Last Taken Unknown] potassium chloride 10 mEq capsule,extended release 10 meq PO DAILY #90 cap 03/22/19 [Last Taken Unknown] alcohol swabs 1 pad TP BID #200 ea 03/28/19 [Last Taken Unknown] flecainide 100 mg tablet 100 mg PO Q12H #180 tab 03/28/19 [Last Taken Unknown] insulin syringe-needle U-100 1 mL 31 gauge x 02/23" See Dose Instructions .ROUTE .MEDSUPPLY #100 ea 03/28/19 [Last Taken Unknown] oxybutynin chloride 10 mg tablet,extended release 24 hr 10 mg PO DAILY #90 tab 04/25/19 [Last Taken Unknown] chlorthalidone 50 mg tablet 50 mg PO DAILY #30 tab 05/01/19 [Last Taken Unknown] lancets 28 gauge See Dose Instructions .ROUTE .MEDSUPPLY #200 ea 05/01/19 [Last Taken Unknown] terazosin 1 mg capsule 1 mg PO HS #90 cap 05/01/19 [Last Taken Unknown] ropinirole 0.5 mg tablet 0.5 mg PO HS #30 tab 05/26/19 [Last Taken Unknown] metformin 1,000 mg tablet 500 mg PO BID #180 tab 06/08/19 [Last Taken Unknown] pramipexole 0.25 mg tablet See Rx Instructions .ROUTE .COMPLEX #90 tablet 06/13/19 [Last Taken Unknown] metoprolol succinate 100 mg tablet,extended release 24 hr See Rx Instructions .ROUTE .COMPLEX #90 tablet 06/21/19 [Last Taken Unknown] lisinopril 40 mg tablet See Rx Instructions .ROUTE .COMPLEX #90 tab 06/26/19 [Last Taken Unknown] omeprazole 40 mg capsule,delayed release See Rx Instructions .ROUTE .COMPLEX #90 capsule 06/26/19 [Last Taken Unknown] lorazepam 1 mg tablet 0.5 mg PO BID #90 tab 07/10/19 [Last Taken Unknown] cholecalciferol (vitamin D3) 2,000 unit capsule See Rx Instructions .ROUTE .COMPLEX #180 capsule 07/31/19 [Last Taken Unknown] levothyroxine 88 mcg capsule 88 mcg PO DAILY #90 cap 07/31/19 [Last Taken Unknown] hydrocodone 5 mg-acetaminophen 325 mg tablet 1 tab PO Q6H PRN #30 tab 08/03/19 [Last Taken Unknown] nitrofurantoin macrocrystal 100 mg capsule 100 mg PO BID #20 cap 08/03/19 [Last Taken Unknown] - History of Present History Narrative: patient presents to ed with report of laying in bed for at least 2 days ,lives with 2 aduts who are care takesrs , found by niece with depends full of feces and legs also soiled Timing: getting worse Severity: severe Modifying Factors - (Improves): Present: other - nothing Modifying Factors - (Worsens): Present: other - nothing Review of Systems - Review of Systems Constitutional: Present: See HPI, weakness, fatigue, malaise EYE: Present: no symptoms reported ENT: Present: no symptoms reported Respiratory: Present: no symptoms reported Cardiology: Present: no symptoms reported Gastrointestinal/Abdominal: Present: no symptoms reported Genitourinary: Present: no symptoms reported Musculoskeletal: Present: no symptoms reported Skin: Present: See HPI, other - pale skin Neurological: Present: See HPI, other - patient slow to speak but understanable Endocrine: Present: no symptoms reported Hematologic/Lymphatic: Present: no symptoms reported Psych: Present: no symptoms reported All Other Systems: All systems neg except as marked Medical History (Last Reviewed 08/06/19 @ 18:54 by Serena June RN) Knee pain, left (Acute) Onset Date: Unknown Anemia (Chronic) Onset Date: Unknown Urge incontinence (Chronic) Onset Date: Unknown Thyroid neoplasm (Resolved) Onset Date: 01/2017 Restless leg syndrome (Chronic) Onset Date: 12/13/16 Pulmonary embolism (Chronic) Onset Date: 02/14/17 Morbid obesity (Chronic) Onset Date: Unknown Lung nodule (Chronic) Onset Date: 12/13/16 Hypokalemia (Chronic) Onset Date: Unknown Hyperlipidemia (Chronic) Onset Date: Unknown GERD (gastroesophageal reflux disease) (Chronic) Onset Date: Unknown Essential hypertension (Chronic) Onset Date: 12/13/16 Type II diabetes mellitus (Chronic) Onset Date: Unknown Chronic pain (Chronic) Onset Date: 12/13/16 Atrial fibrillation (Chronic) Onset Date: Unknown Arthritis (Chronic) Onset Date: Unknown S/P total knee arthroplasty Onset Date: Unknown Abnormal stress test Onset Date: 12/22/11 positive stress test-sched for heart cath that was negative. Surgical History: Surgical History (Last Reviewed 08/06/19 @ 18:54 by Serena June RN) H/O cardiac catheterization Onset Date: 03/25/12 WN H/O hernia repair Onset Date: 2002 History of bladder surgery Onset Date: 05/2013-bladder implant in her back to stimulate bladder; 06/2013 History of bladder surgery Onset Date: 09/24/16 transurethral resection: DR. Cooper at [facility]-verrucous squamous hyperplasic (precancerous). History of cataract surgery Onset Date: 05/26/11 right-05/26/11; left-06/23/11 History of cystoscopy Onset Date: 12/02/17 [facility] History of gastric stapling Onset Date: ~1979 History of knee replacement procedure of left knee Onset Date: 12/26/13 Dr. Contreras History of knee replacement procedure of right knee Onset Date: 09/2010 History of loop electrosurgical excision procedure (LEEP) Onset Date: 02/18/07 Dr. Loera History of meniscectomy of left knee Onset Date: 10/29/06 Dr. Burris History of partial thyroidectomy Onset Date: 01/2017 History of repair of rotator cuff Onset Date: 05/02/03 History of thyroid surgery Onset Date: 01/2017 hemithyroidectomy, right; pathology showed benign findings-Dr. Wisdom Retained gallstones following open cholecystectomy Onset Date: 1975 Family History: Family History (Last Reviewed 08/06/19 @ 18:54 by Serena June RN) Mother , age 65 Myocardial infarction Father , age 67 Myocardial infarction Sister , age 30's Cancer ovarian cancer Sister , age 63 COPD (chronic obstructive pulmonary disease) Social History: (Last Reviewed 08/06/19 @ 18:54 by Serena June RN) Social History: Marital status: lives independently: Yes household members: spouse current occupational status: retired Highest education level completed: 10th grade Service: No Tobacco: Smoking Status: Never smoker Alcohol: alcohol intake: never Substance Use: substance use type: does not use Dietary Habits: caffeine: Yes Type: coffee Physical Exam - Physical Exam General Appearance: Present: no apparent distress, lethargic Head Exam: Present: normal inspection, no evidence of injury Eye Exam: Normal inspection: bilateral, PERRL: bilateral, EOMI: bilateral Ears, Nose, Throat: Present: normal ENT inspection, normal pharynx Neck: Present: normal inspection, nontender Respiratory: Present: no respiratory distress, normal breath sounds, no accessory muscle use, chest nontender, lungs clear Cardiovascular/Chest: Present: irregularly irregular Peripheral Pulses: N=norm/S=strong/W=weak/B=bound/A=absent: Carotid (R): Normal, Carotid (L): Normal, Radial (R): Normal, Radial (L): Normal, Femoral (R): Normal, Femoral (L): Normal Gastrointestinal/Abdominal: Present: normal bowel sounds, nontender, nondist ended, soft, no organomegaly Back Exam: Present: normal inspection, normal range of motion, no CVA tenderness, no vertebral tenderness Extremity Exam: Present: normal inspection, non-tender, normal range of motion, no edema Neurological Exam: Present: alert, oriented, motor weakness Skin Exam: Present: pallor Lymphatic Exam: Present: no adenopathy Progress - Date and Time Seen: Date and Time: 08/06/19 19:43 condition unchanged to transfer care to dr spennetta - Vital Signs Vital Signs: Vital Signs 08/06/19 18:39 Temperature 36.5 C Pulse Rate 78 Respiratory Rate 16 Blood Pressure 134/47 O2 Sat by Pulse Oximetry 100 - EKG EKG #1 EKG: NSR - Progress/Reassessment Chief Complaint: General Assessment Progress:: Unchanged - Transfer of Care Physician Sign Out: James Kay Receiving Physician: Nicolás Renee Expected Disposition: Admit Plan - Plan Plan: to admit Departure Clinical Impression: Anemia Qualifiers: Anemia type: unspecified type Qualified Code(s): D64.9 - Anemia, unspecified Acute renal failure Qualifiers: Acute renal failure type: unspecified Qualified Code(s): N17.9 - Acute kidney failure, unspecified UTI (urinary tract infection) Qualifiers: Urinary tract infection type: acute cystitis Hematuria presence: without hematuria Qualified Code(s): N30.00 - Acute cystitis without hematuria - Departure Disposition: Still a patient Condition: Stable Referrals: Anthony Whitehead DO [Primary Care Provider] - <Nicolás Renee - Last Filed: 08/06/19 21:00> Medical Problem HPI - Immun/Allergies/Home Medications Immunizations: IMMUNIZATION HX Immunizations Up to Date Yes History of Influenza Vaccine No Hx Pneumococcal Vaccination Yes Medical History (Last Reviewed 08/06/19 @ 18:54 by Serena June RN) Knee pain, left (Acute) Onset Date: Unknown Anemia (Chronic) Onset Date: Unknown Urge incontinence (Chronic) Onset Date: Unknown Thyroid neoplasm (Resolved) Onset Date: 01/2017 Restless leg syndrome (Chronic) Onset Date: 12/13/16 Pulmonary embolism (Chronic) Onset Date: 02/14/17 Morbid obesity (Chronic) Onset Date: Unknown Lung nodule (Chronic) Onset Date: 12/13/16 Hypokalemia (Chronic) Onset Date: Unknown Hyperlipidemia (Chronic) Onset Date: Unknown GERD (gastroesophageal reflux disease) (Chronic) Onset Date: Unknown Essential hypertension (Chronic) Onset Date: 12/13/16 Type II diabetes mellitus (Chronic) Onset Date: Unknown Chronic pain (Chronic) Onset Date: 12/13/16 Atrial fibrillation (Chronic) Onset Date: Unknown Arthritis (Chronic) Onset Date: Unknown S/P total knee arthroplasty Onset Date: Unknown Abnormal stress test Onset Date: 12/22/11 positive stress test-sched for heart cath that was negative. Surgical History: Surgical History (Last Reviewed 08/06/19 @ 18:54 by Serena June RN) H/O cardiac catheterization Onset Date: 03/25/12 WNL H/O hernia repair Onset Date: 2002 History of bladder surgery Onset Date: 05/2013-bladder implant in her back to stimulate bladder; 06/2013 History of bladder surgery Onset Date: 09/24/16 transurethral resection: DR. Cooper at [facility]-verrucous squamous hyperplasic (precancerous). History of cataract surgery Onset Date: 05/26/11 right-05/26/11; left-06/23/11 History of cystoscopy Onset Date: 12/02/17 [facility] History of gastric stapling Onset Date: ~1979 History of knee replacement procedure of left knee Onset Date: 12/26/13 Dr. Contreras History of knee replacement procedure of right knee Onset Date: 09/2010 History of loop electrosurgical excision procedure (LEEP) Onset Date: 02/18/07 Dr. Loera History of meniscectomy of left knee Onset Date: 10/29/06 Dr. Burris History of partial thyroidectomy Onset Date: 01/2017 History of repair of rotator cuff Onset Date: 05/02/03 History of thyroid surgery Onset Date: 01/2017 hemithyroidectomy, right; pathology showed benign findings-Dr. Wisdom Retained gallstones following open cholecystectomy Onset Date: 1975 Family History: Family History (Last Reviewed 08/06/19 @ 18:54 by Serena June RN) Mother , age 65 Myocardial infarction Father , age 67 Myocardial infarction Sister , age 30's Cancer ovarian cancer Sister , age 63 COPD (chronic obstructive pulmonary disease) Social History: (Last Reviewed 08/06/19 @ 18:54 by Serena June RN) Social History: Marital status: lives independently: Yes household members: spouse current occupational status: retired Highest education level completed: 10th grade Service: No Tobacco: Smoking Status: Never smoker Alcohol: alcohol intake: never Substance Use: substance use type: does not use Dietary Habits: caffeine: Yes Type: coffee Progress - Results and Orders Patient's Lab Results:: I have reviewed the patient's lab results. - Vital Signs Patient's Vital Signs:: I have reviewed the patient's vital signs. Vital Signs: Vital Signs 08/06/19 18:39 08/06/19 19:55 Temperature 36.5 C Pulse Rate 78 79 Respiratory Rate 16 18 Blood Pressure 134/47 120/43 O2 Sat by Pulse Oximetry 100 100 - X-Ray X-Ray #1 X-Ray: chest Interpretation: Interp. by me X-ray Comments: No acute cardiopulmonary abnormalities are identified Plan - Plan Plan: This is a 73-year-old female that I assumed care of at 8:00 from the outgoing physician. Briefly she was found with decreased level of responsiveness in the home. She apparently had 2 adult children who are at home who are supposed to be watching her. Patient had feces soiling herself in her legs. Appeared quite unkempt. Plan was to admit the patient. She does have a UTI but does not meet criteria for sepsis. She was started on Rocephin. Chest x-ray is clear. She does show signs of acute renal failure. We are calling DCFS. Patient will need to be admitted to the hospital.
[2019-08-06 19:29] LABS: Hematocrit 27.6 % (37.0-47.0); Mean Cell Volume 73.6 fl (78-100); Mean Corpuscular Hemoglobin 20.5 pg (27-31); Mean Corpuscular Hgb Conc 27.9 g/dl (32-36); Mean Platelet Volume 8.5 fl (8-12.5); Neutrophil # 3.2 K/mm3 (1.3-6.0); Neutrophil % 65.9 % (42-75.0); Platelet Count 258 K/mm3 (150-450); Red Blood Count 3.75 M/mm3 (4.2-5.4); Red Cell Distribution Width 18.1 % (11.5-14.0); White Blood Count 4.9 K/mm3 (4.0-10.5)
[2019-08-06 19:39] LABS: Hemoglobin 7.7 gm/dL (12.5-16.0)
[2019-08-06 19:47] LABS: ALT 22 U/L (19-67); AST 54 U/L (0-48); Albumin * 3.5 gm/dl (3.4-5.0); Alkaline Phosphatase * 79 U/L (50-170); BUN/Creatinine Ratio 15.2 (9.0-21.6); Bilirubin, Total 1.3 mg/dL (0.0-1.1); Blood Urea Nitrogen 42 mg/dL (3-23); CK Total * 893 U/L (0-259); Ca. Corrected For Albumin 8.3 mg/dL (8.4-10.2); Calcium * 8.2 mg/dL (7.9-10.9); Carbon Dioxide 22.1 mmol/L (24-32.6); Chloride 98 mmol/L (97-106); Glucose * 172 mg/dL (70-110); Potassium 4.1 mmol/L (3.4-4.6); Sodium 136 mmol/L (132-142); Total Protein 7.5 gm/dL (6.2-8.2); Troponin I Less than 0.017 ng/mL (0.00-0.10)
[2019-08-06] MEDS ORDERED: NORMAL SALINE 1,000 ML IV PRN (20:16)
[2019-08-06] MEDS ORDERED: MORPHINE SULFATE 4 MG/ML SYRG IV ONE (20:16)
[2019-08-06 20:24] LABS: Urine Bilirubin 3 mg/dl (NEGATIVE); Urine Blood 250 /ul (NEGATIVE); Urine Ketone 5 mg/dL (NEGATIVE); Urine Nitrite Negative (NEGATIVE); Urine Protein 30 mg/dL (NEGATIVE); Urine Specific Gravity >=1.030 SP.GR. (1.005-1.010); Urine Urobilinogen Normal (NORMAL); Urine pH 5.5 pH (5.0-7.0)
[2019-08-06 20:32] LABS: Urine Appearance Cloudy (CLEAR); Urine Bacteria 3+; Urine Color Yellow; Urine WBC >50 /hpf (0-5)
[2019-08-06] MEDS ORDERED: cefTRIAXone SODIUM 1,000 MG/100 ML BAG IV ONE (20:34)
[2019-08-06 21:43] LABS: Cocaine Ur Negative (NEGATIVE); Urine Barbiturate Negative (NEGATIVE); Urine Benzodiazepines Negative (NEGATIVE); Urine Opiates Positive (NEGATIVE); Urine PCP Negative (NEGATIVE); Urine THC Negative (NEGATIVE)
[2019-08-06] MEDS: LORazepam 2 MG/ML DISP.SYRIN IV PRN (22:08)
[2019-08-07] MEDS: NORMAL SALINE 1,000 ML IV PRN ×2 (00:44→18:47)
[2019-08-07] MEDS: LORazepam 2 MG/ML DISP.SYRIN IV PRN (04:10)
[2019-08-07 05:59] LABS: Mean Cell Volume 73.4 fl (78-100); Mean Corpuscular Hemoglobin 20.6 pg (27-31); Mean Corpuscular Hgb Conc 28.1 g/dl (32-36); Mean Platelet Volume 9.6 fl (8-12.5); Neutrophil # 2.5 K/mm3 (1.3-6.0); Neutrophil % 54.9 % (42-75.0); Platelet Count 255 K/mm3 (150-450); Red Cell Distribution Width 17.8 % (11.5-14.0); White Blood Count 4.5 K/mm3 (4.0-10.5)
[2019-08-07 06:04] LABS: Hematocrit 23.5 % (37.0-47.0); Hemoglobin 6.6 gm/dL (12.5-16.0)
[2019-08-07] MEDS ORDERED: NITROGLYCERIN 0.4 MG/TAB BTL SL PRN (08:35)
[2019-08-07] MEDS ORDERED: RINGER'S SOLUTION,LACTATED 1,000 ML IV PRN (08:47)
[2019-08-07] MEDS ORDERED: FLU VACC QS2019-20(6MOS UP)/PF 60 MCG/0.5 ML SYRINGE IM ONE (09:00)
[2019-08-07] MEDS ORDERED: PANTOPRAZOLE SODIUM 40 MG TABLET.EC PO SCH (09:00)
[2019-08-07] MEDS ORDERED: WARFARIN SODIUM 7.5 MG TABLET PO SCH (09:00)
[2019-08-07 09:14] LABS: INR 1.75 INR (0.92-1.08)
[2019-08-07] MEDS: FLECAINIDE ACETATE 100 MG TABLET PO SCH ×2 (10:24→20:24)
[2019-08-07] MEDS: LORazepam 1 MG TABLET PO SCH ×2 (10:24→20:24)
[2019-08-07] MEDS: PANTOPRAZOLE SODIUM 40 MG TABLET.EC PO SCH (10:24)
[2019-08-07] MEDS: NYSTATIN 15 APPL BTL TP SCH ×2 (11:11→20:27)
--- NOTE | 2019-08-07 12:12 | HP ---
Chief Complaint - Chief Complaint Date of Service: 08/07/19 Time of Service: 08:20 Chief Complaint: weakness, latered mental status, unable to care for herself History of Present Illness: Kimberli Albert is a 73-year-old female patient well-known to me who presented to ER last evening after being found by family at home. She had been in bed and unable to get up and was covered in feces. She had a marked change in her mental status and had a lot of weakness. She was unable to stand on her own or even with assistance area on arrival in ER evaluation showed her to be dehydrated with acute on chronic kidney injury and a urinary tract infection. She is also profoundly anemic with a hemoglobin of 6.6 g and being dehydrated this is almost certainly hemoconcentrated. She was admitted and given IV fluids through the night and started on Rocephin for an antibiotic. 2 units of packed red blood cells have been ordered by Dr. Yeung and I changed to 3 units as with rehydration her hemoglobin will probably drop into the 5 g range. She has a marked decline in her mental status. She is cold and having trouble getting warm. She is not eating or drinking this morning. Her POA had to be contacted to get permission to give blood. Ordinarily Kimberli is fairly independent. She usually cares for herself prepares her own food. She comes the office and is ambulatory and fully conversant. She has a history of stage III chronic kidney disease which is usually in the stage IIIa range. Her EGFR on admission is 18. Her BUN to creatinine ratio is also 18. Creatinine is 2.79. She has had 2 L of fluid through the night. The admission hemoglobin was 7.7 g this morning's of 6.6 g. She also has a significant urinary tract infection per UA. There is insufficient criteria for Sirs or for sepsis. Medical History (Last Reviewed 08/06/19 @ 23:08 by Lashae Deluca RN) Knee pain, left (Acute) Onset Date: Unknown Anemia (Chronic) Onset Date: Unknown Urge incontinence (Chronic) Onset Date: Unknown Thyroid neoplasm (Resolved) Onset Date: 01/2017 Restless leg syndrome (Chronic) Onset Date: 12/13/16 Pulmonary embolism (Chronic) Onset Date: 02/14/17 Morbid obesity (Chronic) Onset Date: Unknown Lung nodule (Chronic) Onset Date: 12/13/16 Hypokalemia (Chronic) Onset Date: Unknown Hyperlipidemia (Chronic) Onset Date: Unknown GERD (gastroesophageal reflux disease) (Chronic) Onset Date: Unknown Essential hypertension (Chronic) Onset Date: 12/13/16 Type II diabetes mellitus (Chronic) Onset Date: Unknown Chronic pain (Chronic) Onset Date: 12/13/16 Atrial fibrillation (Chronic) Onset Date: Unknown Arthritis (Chronic) Onset Date: Unknown S/P total knee arthroplasty Onset Date: Unknown Abnormal stress test Onset Date: 12/22/11 positive stress test-sched for heart cath that was negative. Surgical History: Surgical History (Last Reviewed 08/06/19 @ 23:09 by Lashae Deluca RN) H/O cardiac catheterization Onset Date: 03/25/12 WNL H/O hernia repair Onset Date: 2002 History of bladder surgery Onset Date: 05/2013-bladder implant in her back to stimulate bladder; 06/2013 History of bladder surgery Onset Date: 09/24/16 transurethral resection: DR. Cooper at [facility]-verrucous squamous hyperplasic (precancerous). History of cataract surgery Onset Date: 05/26/11 right-05/26/11; left-06/23/11 History of cystoscopy Onset Date: 12/02/17 [facility] History of gastric stapling Onset Date: ~1979 History of knee replacement procedure of left knee Onset Date: 12/26/13 Dr. Contreras History of knee replacement procedure of right knee Onset Date: 09/2010 History of loop electrosurgical excision procedure (LEEP) Onset Date: 02/18/07 Dr. Loera History of meniscectomy of left knee Onset Date: 10/29/06 Dr. Burris History of partial thyroidectomy Onset Date: 01/2017 History of repair of rotator cuff Onset Date: 05/02/03 History of thyroid surgery Onset Date: 01/2017 hemithyroidectomy, right; pathology showed benign findings-Dr. Wisdom Retained gallstones following open cholecystectomy Onset Date: 1975 Family History: Family History (Last Reviewed 08/06/19 @ 18:54 by Serena June RN) Mother , age 65 Myocardial infarction Father , age 67 Myocardial infarction Sister , age 30's Cancer ovarian cancer Sister , age 63 COPD (chronic obstructive pulmonary disease) Social History: (Last Updated 08/06/19 @ 23:11 by Lashae Deluca RN) Social History: daycare: no daycare half-way: No Marital status: / lives independently: Yes household members: family, children current occupational status: retired Highest education level completed: 10th grade Service: No Tobacco: Smoking Status: Never smoker Alcohol: alcohol intake: never Substance Use: substance use type: does not use Dietary Habits: caffeine: Yes Type: coffee Review Of Systems (GEN) - Review of Systems Generalized/Overall Review: Present: Weakness EENTM: Present: No Symptoms Reported Respiratory: Present: No Symptoms Reported Cardiac: Present: No Symptoms Reported Abdominal: Present: No Symptoms Reported Genitourinary: Present: Urgency, Frequency, Incontinent, Dysuria Musculoskeletal: Present: No Symptoms Reported Neurological: Present: Weakness, Other - Marked decline in mental status Skin: Present: No Symptoms Reported, Other - Complains of being cold Endocrine: Present: No Symptoms Reported Immunizations: IMMUNIZATION HX Immunizations Up to Date Yes History of Influenza Vaccine No Hx Pneumococcal Vaccination Yes Allergies/Adverse Reactions: Allergies Allergy/AdvReac Type Severity Reaction Status Date / Time No Known Allergies Allergy Verified 08/06/19 18:53 Home Medications: HOME MEDICATIONS insulin human U-100 NPH-regulr 70-30 mix 100 unit/mL subcutaneous susp 20 unit SUB-Q BID ml 04/24/18 [Last Taken Unknown] warfarin 7.5 mg tablet 7.5 mg PO DAILY #90 tab 12/21/18 [Last Taken Unknown] gabapentin 300 mg capsule 300 mg PO TID #90 cap 03/17/19 [Last Taken Unknown] atorvastatin 10 mg tablet 10 mg PO HS #90 tab 03/22/19 [Last Taken Unknown] potassium chloride 10 mEq capsule,extended release 10 meq PO DAILY #90 cap 03/22/19 [Last Taken Unknown] alcohol swabs 1 pad TP BID #200 ea 03/28/19 [Last Taken Unknown] insulin syringe-needle U-100 1 mL 31 gauge x 5/16" See Dose Instructions .ROUTE .MEDSUPPLY #100 ea 03/28/19 [Last Taken Unknown] oxybutynin chloride 10 mg tablet,extended release 24 hr 10 mg PO DAILY #90 tab 04/25/19 [Last Taken Unknown] lancets 28 gauge See Dose Instructions .ROUTE .MEDSUPPLY #200 ea 05/01/19 [Last Taken Unknown] terazosin 1 mg capsule 1 mg PO HS #90 cap 05/01/19 [Last Taken Unknown] ropinirole 0.5 mg tablet 0.5 mg PO HS #30 tab 05/26/19 [Last Taken Unknown] metformin 1,000 mg tablet 500 mg PO BID #180 tab 06/08/19 [Last Taken Unknown] levothyroxine 88 mcg capsule 88 mcg PO DAILY #90 cap 07/31/19 [Last Taken Unknown] hydrocodone 5 mg-acetaminophen 325 mg tablet 1 tab PO Q6H PRN #30 tab 08/03/19 [Last Taken Unknown] Omeprazole 40 mg PO DAILY 08/06/19 [Last Taken Unknown] Pramipexole Di-HCl [Mirapex] 0.125 mg PO HS 08/06/19 [Last Taken Unknown] Blood Sugar Diagnostic [Test Strips] 1 ea 08/07/19 [Last Taken Unknown] Chlorthalidone 25 mg PO DAILY 08/07/19 [Last Taken Unknown] Flecainide Acetate 100 mg PO BID 08/07/19 [Last Taken Unknown] Hydrochlorothiazide [Hydrodiuril] 25 mg PO DAILY 08/07/19 [Last Taken Unknown] LORazepam [Ativan] 1 mg PO BID 08/07/19 [Last Taken Unknown] Lisinopril [Zestril] 1 tab .ROUTE DAILY 08/07/19 [Last Taken Unknown] Meloxicam [Mobic] 7.5 mg PO DAILY 08/07/19 [Last Taken Unknown] Metoprolol Succinate [Toprol Xl] 1 tab .ROUTE DAILY 08/07/19 [Last Taken Unknown] Nitroglycerin [Nitrostat] 0.4 mg SUBLINGUAL Q5MIN PRN 08/07/19 [Last Taken Unknown] Ranitidine HCl 300 mg PO DAILY 08/07/19 [Last Taken Unknown] Exam - Exam Vital Signs: Vital Signs - Last Taken Temp 36.9 C 08/07/19 09:33 Pulse 75 08/07/19 10:39 Resp 16 08/07/19 09:33 BP 147/42 08/07/19 09:33 Pulse Ox 99 08/07/19 09:33 Constitutional: Present: Well developed, Moderate distress, Elderly, Obese, Looks Older than stated age ENT Exam: Present: normal ENT inspection Eye Exam: bilateral eye: normal inspection, PERRL, EOMI Neck: Present: non-tender, full range of motion, supple, normal inspection, trachea midline Back Exam: Present: normal inspection, no CVA tenderness, no vertebral tende rness Respiratory: Present: chest non-tender, lungs clear, normal breath sounds, no respiratory distress, no accessory muscle use Cardiovascular/Chest: Present: normal peripheral pulses, regular rate, rhythm, no chest tenderness, no edema, no gallop, no JVD, no murmur, no rub Peripheral Pulses: carotid (R): 2+, carotid (L): 2+, radial (R): 2+, radial (L): 2+ Abdomen: Present: Normal bowel sounds, soft, nontender, nondistended, no rebound tenderness, no hepatospenomegaly, no masses /Rectal: Present: Exam deferred, External genitalia normal Extremity: Present: normal range of motion, non-tender, normal inspection, no pedal edema, no calf tenderness, inflammation - And skin folds that appear to be Gay, slow capillary refill Skin Exam: Present: pallor Lymphatic: Present: no adenopathy Neurologic: Present: personal computer specialist II-XII nml as tested, motor weakness, depressed affect, other - Unable to volunteer speech. She can answer some yes or no questions by nodding or shaking her head but she is nonverbal this morning. Appearance: Present: disheveled, impaired insight Eye contact: Present: cooperative, avoids eye contact, other - Nonverbal this morning Thoughts: Present: no apparent hallucination Diagnostic Studies: Abnormal Lab Results 08/06/19 08/06/19 08/06/19 Range/Units 19:25 19:25 19:30 RBC 3.75 L (4.2-5.4) M/mm3 Hgb 7.7 L* (12.5-16.0) gm/dL Hct 27.6 L (37.0-47.0) % MCV 73.6 L (78-100) fl MCH 20.5 L (27-31) pg MCHC 27.9 L (32-36) g/dl RDW 18.1 H (11.5-14.0) % Monocytes % 10.7 H (0.0-9) % Eosinophils % (0.0-3.0) % Lymphocytes # 1.04 L (1.5-3.5) k/mm3 PT (9.1-10.7) Seconds INR (Anticoag Therapy) (0.92-1.08) INR Carbon Dioxide 22.1 L (24-32.6) mmol/L Anion Gap 20.0 H (6.8-13.8) mmol/L BUN 42 H D (3-23) mg/dL Creatinine 2.77 H D (0.4-1.4) mg/dL Est GFR (Non-Af Amer) 18 L D (60-130) mL/min Random Glucose 172 H (70-110) mg/dL Calcium Adj for Albumin 8.3 L (8.4-10.2) mg/dL Total Bilirubin 1.3 H (0.0-1.1) mg/dL AST 54 H (0-48) U/L Creatine Kinase 893 H (0-259) U/L C-Reactive Prot, Quant 1.0 H (0.0-0.9) mg/dL Urine Protein (NEGATIVE) mg/dL Urine Blood (NEGATIVE) /ul Urine Bilirubin (NEGATIVE) mg/dl Ur Leukocyte Esterase (NEGATIVE) /ul Urine RBC (0-5) /hpf Urine WBC (0-5) /hpf Urine Bacteria (NONE) Urine Opiates Screen Positive H (NEGATIVE) Crossmatch 08/06/19 08/07/19 08/07/19 Range/Units 20:16 05:15 05:15 RBC 3.20 L (4.2-5.4) M/mm3 Hgb 6.6 L* (12.5-16.0) gm/dL Hct 23.5 L* (37.0-47.0) % MCV 73.4 L (78-100) fl MCH 20.6 L (27-31) pg MCHC 28.1 L (32-36) g/dl RDW 17.8 H (11.5-14.0) % Monocytes % 12.0 H (0.0-9) % Eosinophils % 3.3 H (0.0-3.0) % Lymphocytes # 1.29 L (1.5-3.5) k/mm3 PT 17.0 H (9.1-10.7) Seconds INR (Anticoag Therapy) 1.75 H (0.92-1.08) INR Carbon Dioxide (24-32.6) mmol/L Anion Gap (6.8-13.8) mmol/L BUN (3-23) mg/dL Creatinine (0.4-1.4) mg/dL Est GFR (Non-Af Amer) (60-130) mL/min Random Glucose (70-110) mg/dL Calcium Adj for Albumin (8.4-10.2) mg/dL Total Bilirubin (0.0-1.1) mg/dL AST (0-48) U/L Creatine Kinase (0-259) U/L C-Reactive Prot, Quant (0.0-0.9) mg/dL Urine Protein 30 H (NEGATIVE) mg/dL Urine Blood 250 H (NEGATIVE) /ul Urine Bilirubin 3 H (NEGATIVE) mg/dl Ur Leukocyte Esterase 100 H (NEGATIVE) /ul Urine RBC 10-25 H (0-5) /hpf Urine WBC >50 H (0-5) /hpf Urine Bacteria 3+ H (NONE) Urine Opiates Screen (NEGATIVE) Crossmatch 08/07/19 Range/Units 05:17 RBC (4.2-5.4) M/mm3 Hgb (12.5-16.0) gm/dL Hct (37.0-47.0) % MCV (78-100) fl MCH (27-31) pg MCHC (32-36) g/dl RDW (11.5-14.0) % Monocytes % (0.0-9) % Eosinophils % (0.0-3.0) % Lymphocytes # (1.5-3.5) k/mm3 PT (9.1-10.7) Seconds INR (Anticoag Therapy) (0.92-1.08) INR Carbon Dioxide (24-32.6) mmol/L Anion Gap (6.8-13.8) mmol/L BUN (3-23) mg/dL Creatinine (0.4-1.4) mg/dL Est GFR (Non-Af Amer) (60-130) mL/min Random Glucose (70-110) mg/dL Calcium Adj for Albumin (8.4-10.2) mg/dL Total Bilirubin (0.0-1.1) mg/dL AST (0-48) U/L Creatine Kinase (0-259) U/L C-Reactive Prot, Quant (0.0-0.9) mg/dL Urine Protein (NEGATIVE) mg/dL Urine Blood (NEGATIVE) /ul Urine Bilirubin (NEGATIVE) mg/dl Ur Leukocyte Esterase (NEGATIVE) /ul Urine RBC (0-5) /hpf Urine WBC (0-5) /hpf Urine Bacteria (NONE) Urine Opiates Screen (NEGATIVE) Crossmatch See Detail Microbiology 08/06/19 20:16 Urine Culture - Preliminary Urine,Catheterized Ruling Out Pathogen Laboratory Results WBC 4.5 K/mm3 (4.0-10.5) 08/07/19 05:15 RBC 3.20 M/mm3 (4.2-5.4) L 08/07/19 05:15 Hgb 6.6 gm/dL (12.5-16.0) L* 08/07/19 05:15 Hct 23.5 % (37.0-47.0) L* 08/07/19 05:15 MCV 73.4 fl (78-100) L 08/07/19 05:15 MCH 20.6 pg (27-31) L 08/07/19 05:15 MCHC 28.1 g/dl (32-36) L 08/07/19 05:15 RDW 17.8 % (11.5-14.0) H 08/07/19 05:15 Plt Count 255 K/mm3 (150-450) 08/07/19 05:15 MPV 9.6 fl (8-12.5) 08/07/19 05:15 Immature Gran % (Auto) 0.20 % (0.001-0.429) 08/07/19 05:15 Immature Gran # (Auto) 0.01 K/mm3 (0.000-0.0310) 08/07/19 05:15 Neutrophils % 54.9 % (42-75.0) 08/07/19 05:15 Lymphocytes % 28.7 % (20-51) 08/07/19 05:15 Monocytes % 12.0 % (0.0-9) H 08/07/19 05:15 Eosinophils % 3.3 % (0.0-3.0) H 08/07/19 05:15 Basophils % 0.9 % (0.0-1.0) 08/07/19 05:15 Nucleated RBC % 0.0 k/mm3 (0-1) 08/07/19 05:15 Neutrophils # 2.5 K/mm3 (1.3-6.0) 08/07/19 05:15 Lymphocytes # 1.29 k/mm3 (1.5-3.5) L 08/07/19 05:15 Monocytes # 0.5 k/mm3 (0.0-1.0) 08/07/19 05:15 Eosinophils # 0.2 k/mm3 (0.0-0.7) 08/07/19 05:15 Absolute Basophils 0.0 k/mm3 (0.0-0.1) 08/07/19 05:15 PT 17.0 Seconds (9.1-10.7) H 08/07/19 05:15 INR (Anticoag Therapy) 1.75 INR (0.92-1.08) H 08/07/19 05:15 Sodium 136 mmol/L (132-142) 08/06/19 19:25 Plasma Sodium 137 mmol/L (130-142) 08/06/19 19:25 Potassium 4.1 mmol/L (3.4-4.6) 08/06/19 19:25 Chloride 98 mmol/L (97-106) 08/06/19 19:25 Carbon Dioxide 22.1 mmol/L (24-32.6) L 08/06/19 19:25 Anion Gap 20.0 mmol/L (6.8-13.8) H 08/06/19 19:25 BUN 42 mg/dL (3-23) H D 08/06/19 19:25 Creatinine 2.77 mg/dL (0.4-1.4) H D 08/06/19 19:25 Est GFR (Non-Af Amer) 18 mL/min (60-130) L D 08/06/19 19:25 BUN/Creatinine Ratio 15.2 (9.0-21.6) 08/06/19 19:25 Random Glucose 172 mg/dL (70-110) H 08/06/19 19:25 Lactic Acid, Venous 1.3 mmol/L (0.4-2.0) 08/06/19 19:25 Calcium 8.2 mg/dL (7.9-10.9) 08/06/19 19:25 Calcium Adj for Albumin 8.3 mg/dL (8.4-10.2) L 08/06/19 19:25 Total Bilirubin 1.3 mg/dL (0.0-1.1) H 08/06/19 19:25 AST 54 U/L (0-48) H 08/06/19 19:25 ALT 22 U/L (19-67) 08/06/19 19:25 Alkaline Phosphatase 79 U/L (50-170) 08/06/19 19:25 Creatine Kinase 893 U/L (0-259) H 08/06/19 19:25 Troponin I Less than 0.017 ng/mL (0.00-0.10) 08/06/19 19:25 C-Reactive Prot, Quant 1.0 mg/dL (0.0-0.9) H 08/06/19 19:25 Total Protein 7.5 gm/dL (6.2-8.2) 08/06/19 19:25 Albumin 3.5 gm/dl (3.4-5.0) 08/06/19 19:25 Urine Color Yellow 08/06/19 20:16 Urine Appearance Cloudy (CLEAR) 08/06/19 20:16 Urine pH 5.5 pH (5.0-7.0) 08/06/19 20:16 Ur Specific [place] >=1.030 SP.GR. (1.005-1.010) 08/06/19 20:16 Urine Protein 30 mg/dL (NEGATIVE) H 08/06/19 20:16 Urine Glucose (UA) Negative mg/dL (NEGATIVE) 08/06/19 20:16 Urine Ketones 5 mg/dL (NEGATIVE) 08/06/19 20:16 Urine Blood 250 /ul (NEGATIVE) H 08/06/19 20:16 Urine Nitrate Negative (NEGATIVE) 08/06/19 20:16 Urine Bilirubin 3 mg/dl (NEGATIVE) H 08/06/19 20:16 Urine Ictotest Negative (NEGATIVE) 08/06/19 20:16 Prot Sulfosalicylic Acd QNS 08/06/19 20:16 Urine Urobilinogen Normal EU/dl (NORMAL) 08/06/19 20:16 Ur Leukocyte Esterase 100 /ul (NEGATIVE) H 08/06/19 20:16 Urine RBC 10-25 /hpf (0-5) H 08/06/19 20:16 Urine WBC >50 /hpf (0-5) H 08/06/19 20:16 Ur Epithelial Cells None seen /hpf (0-5) 08/06/19 20:16 Urine Bacteria 3+ (NONE) H 08/06/19 20:16 Urine Culture Comments Culture to follow 08/06/19 20:16 Stool Occult Blood Negative 08/06/19 19:10 Urine Opiates Screen Positive (NEGATIVE) H 08/06/19 19:30 Barbiturate Screen Negative (NEGATIVE) 08/06/19 19:30 Ur Phencyclidine Scrn Negative (NEGATIVE) 08/06/19 19:30 Urine Amphetamine Negative (NEGATIVE) 08/06/19 19:30 U Benzodiazepines Scrn Negative (NEGATIVE) 08/06/19 19:30 Urine Cocaine Screen Negative (NEGATIVE) 08/06/19 19:30 Urine Marijuana (THC) Negative (NEGATIVE) 08/06/19 19:30 Blood Type O Positive 08/07/19 05:17 Antibody Screen Negative 08/07/19 05:17 Crossmatch See Detail 08/07/19 05:17 Assessment/Plan - Narrative Narrative: 1. Type cross infuse 3 units of packed red blood cells 2. DC IV fluids since she has had 2 L already 3. Repeat CBC and CMP tomorrow morning and check a hemoglobin and hematocrit after the third unit is infused. 4. Physical therapy to evaluate for strengthening 5. Nystatin powder ordered for skin folds 6. Continue IV Rocephin 7. Continue current cardiac monitoring and vital signs every 6 hours. - Assessment/Plan (1) UTI (urinary tract infection) Problem: Acute Qualifiers: Urinary tract infection type: acute cystitis Hematuria presence: without hematuria Qualified Code(s): N30.00 - Acute cystitis without hematuria (2) Anemia Problem: Chronic Qualifiers: Anemia type: unspecified type Qualified Code(s): D64.9 - Anemia, unspecified (3) Acute alteration in mental status Problem: Acute (4) Acute on chronic renal failure Problem: Acute Qualifiers: Acute renal failure type: with acute renal cortical necrosis Chronic kidney disease stage: stage 3 (moderate) Qualified Code(s): N17.1 - Acute kidney failure with acute cortical necrosis; N18.3 - Chronic kidney disease, stage 3 (moderate) (5) Type II diabetes mellitus Problem: Chronic Qualifiers: Diabetes mellitus skilled nursing insulin use: with ad terminal makeup operator use Diabetes mellitus complication status: with neurologic complications Diabetes mellitus complication detail: with polyneuropathy Qualified Code(s): E11.42 - Type 2 diabetes mellitus with diabetic polyneuropathy; Z79.4 - intermediate designer (current) use of insulin
[2019-08-07 13:12] LABS: Iron 14 mcg/dL (35-120); Transferrin Sat. (% Sat.) 4 % (15-55)
[2019-08-07] MEDS: HYDROcodone/ACETAMINOPHEN 1 EACH TABLET PO PRN ×2 (13:57→20:27)
[2019-08-07] MEDS: WARFARIN SODIUM 7.5 MG TABLET PO SCH (16:56)
[2019-08-07] MEDS: rOPINIRole HCL 0.5 MG TABLET PO SCH (20:24)
[2019-08-07] MEDS: PRAMIPEXOLE DI-HCL 0.5 MG TABLET PO SCH (20:25)
[2019-08-07 20:36] LABS: Hematocrit 34.9 % (37.0-47.0); Hemoglobin 10.7 gm/dL (12.5-16.0)
[2019-08-08] MEDS: NORMAL SALINE 1,000 ML IV PRN (03:32)
[2019-08-08] MEDS: HYDROcodone/ACETAMINOPHEN 1 EACH TABLET PO PRN ×2 (03:36→19:28)
[2019-08-08] MEDS: LORazepam 2 MG/ML DISP.SYRIN IV PRN (03:36)
[2019-08-08 05:29] LABS: Hematocrit 33.3 % (37.0-47.0); Hemoglobin 10.2 gm/dL (12.5-16.0); Mean Corpuscular Hemoglobin 23.3 pg (27-31); Mean Corpuscular Hgb Conc 30.6 g/dl (32-36); Mean Platelet Volume 9.2 fl (8-12.5); Neutrophil # 3.7 K/mm3 (1.3-6.0); Neutrophil % 66.6 % (42-75.0); Platelet Count 221 K/mm3 (150-450); Red Blood Count 4.38 M/mm3 (4.2-5.4); Red Cell Distribution Width 18.6 % (11.5-14.0); White Blood Count 5.6 K/mm3 (4.0-10.5)
[2019-08-08 05:40] LABS: Prothrombin Time (Patient) 17.4 Seconds (9.1-10.7)
[2019-08-08 05:46] LABS: Albumin * 2.9 gm/dl (3.4-5.0); Anion Gap 13.9 mmol/L (6.8-13.8); BUN/Creatinine Ratio 17.5 (9.0-21.6); Bilirubin, Total 1.9 mg/dL (0.0-1.1); Calcium * 8.4 mg/dL (7.9-10.9); Carbon Dioxide 24.3 mmol/L (24-32.6); Potassium 3.2 mmol/L (3.4-4.6); Total Protein 6.3 gm/dL (6.2-8.2)
[2019-08-08 05:51] LABS: INR 1.8 INR (0.92-1.08)
[2019-08-08] MEDS: PANTOPRAZOLE SODIUM 40 MG TABLET.EC PO SCH (06:34)
[2019-08-08] MEDS: FERROUS SULFATE 325 MG TABLET PO SCH (08:45)
[2019-08-08] MEDS: LORazepam 1 MG TABLET PO SCH ×2 (08:45→21:42)
[2019-08-08] MEDS: FLECAINIDE ACETATE 100 MG TABLET PO SCH ×2 (08:45→21:45)
[2019-08-08] MEDS: NYSTATIN 15 APPL BTL TP SCH ×2 (09:00→21:45)
[2019-08-08] MEDS: POTASSIUM CHLORIDE 20 MEQ TABLET.SA PO SCH ×2 (09:00→17:26)
--- NOTE | 2019-08-08 13:04 | PN ---
Subjective - Date and Time Seen Date: 08/08/19 Time: 12:44 Subjective Narrative: Kimberli is much improved, sitting up for lunch and feeding herself. She is still ataxic and apraxic and does not volunteer much speech but she is answering questions appropriately. She is amnestic as to yesterday but she does remember coming to the hospital in the ambulance. She has had 3 units of packed red blood cells which improved her hemoglobin from 6.6 g to 10.2 g this morning. The white count and platelets are normal. The chemistry show potassium low at 3.2. The EGFR is improved from 18 yesterday to 56 today. The acute kidney injury plus the profound anemia and the dehydration were what were responsible for the metabolic encephalopathy. That is not completely resolved but it is much improved. She has walked a little bit today but feels unsteady on her feet. She is eating a full liquid lunch and would like to progress her diet. Her IV has been saline locked since this morning and the IV fluids have been discontinued. She continues on IV antibiotics. Objective - Review of Systems Generalized/Overall Review: Reports: Weakness EENTM: Reports: No Symptoms Reported Respiratory: Reports: Cough, Shortness of Breath - With exertion Cardiac: Reports: No Symptoms Reported Abdominal: Reports: No Symptoms Reported Genitourinary Symptoms: Reports: Urgency, Frequency Neurological: Reports: Depressed, Weakness, Other - Moderate ataxia and apraxia persist but improved significantly from yesterday. Skin: Reports: No Symptoms Reported, Other - Turgor much improved Endocrine: Reports: No Symptoms Reported - Vitals Vitals: Last Vital Signs Temp 36.2 C 08/08/19 10:00 Pulse 73 08/08/19 10:00 Resp 20 08/08/19 10:00 BP 190/75 H 08/08/19 10:00 Pulse Ox 97 08/08/19 10:00 - Abnormal Lab Findings Abnormal Lab Findings: Abnormal Lab Results 08/07/19 08/07/19 08/07/19 Range/Units 05:15 05:17 20:20 Hgb 10.7 L (12.5-16.0) gm/dL Hct 34.9 L (37.0-47.0) % MCV (78-100) fl MCH (27-31) pg MCHC (32-36) g/dl RDW (11.5-14.0) % Lymphocytes % (20-51) % Monocytes % (0.0-9) % Lymphocytes # (1.5-3.5) k/mm3 PT (9.1-10.7) Seconds INR (Anticoag Therapy) (0.92-1.08) INR Potassium (3.4-4.6) mmol/L Anion Gap (6.8-13.8) mmol/L Est GFR (Non-Af Amer) (60-130) mL/min Random Glucose (70-110) mg/dL Iron 14 L (35-120) mcg/dL Transferrin % Sat 4 L (15-55) % Total Bilirubin (0.0-1.1) mg/dL ALT (19-67) U/L Albumin (3.4-5.0) gm/dl Crossmatch See Detail 08/08/19 08/08/19 08/08/19 Range/Units 05:25 05:25 05:25 Hgb 10.2 L (12.5-16.0) gm/dL Hct 33.3 L (37.0-47.0) % MCV 76.0 L (78-100) fl MCH 23.3 L (27-31) pg MCHC 30.6 L (32-36) g/dl RDW 18.6 H (11.5-14.0) % Lymphocytes % 19.1 L (20-51) % Monocytes % 10.5 H (0.0-9) % Lymphocytes # 1.07 L (1.5-3.5) k/mm3 PT 17.4 H (9.1-10.7) Seconds INR (Anticoag Therapy) 1.80 H (0.92-1.08) INR Potassium 3.2 L D (3.4-4.6) mmol/L Anion Gap 13.9 H (6.8-13.8) mmol/L Est GFR (Non-Af Amer) 56 L D (60-130) mL/min Random Glucose 121 H (70-110) mg/dL Iron (35-120) mcg/dL Transferrin % Sat (15-55) % Total Bilirubin 1.9 H (0.0-1.1) mg/dL ALT 17 L (19-67) U/L Albumin 2.9 L (3.4-5.0) gm/dl Crossmatch - EKG/Xray Findings EKG: NSR EKG read: Reviewed by me XRAY: chest Interpretation: Reviewed by me - Exam Constitutional: Present: Alert, Oriented x3, Cooperative, Well developed, Well nourished, Mild distress, Lethargic, Elderly, Looks Older than stated age ENT Exam: Present: normal ENT inspection, hearing grossly normal, pharynx normal, TMs normal Neck: Present: non-tender, full range of motion, supple, normal inspection, limited range of motion Breasts: Present: Exam deferred Respiratory: Present: chest non-tender, decreased breath sounds Cardiovascular/Chest: Present: normal peripheral pulses, regular rate, rhythm, no chest tenderness, no edema, no gallop, no JVD, no murmur, no rub Abdomen: Present: Normal bowel sounds, soft, nontender, nondistended, no rebound tenderness, no hepatospenomegaly, no masses, obese /Rectal: Present: Exam deferred Extremity: Present: normal range of motion, lower extremity edema, pedal edema Skin Exam: Present: normal color, warm/dry, pallor Lymphatic: Present: no adenopathy Neurologic: Present: employee relations consultant II-XII nml as tested, abnormal gait, motor weakness, depressed affect Appearance: Present: disheveled, impaired recent memory Eye contact: Present: cooperative, avoids eye contact, decreased rate of speech Thoughts: Present: normal thought pattern, no apparent hallucination Assessment/Plan - Problems/Diagnosis (1) UTI (urinary tract infection) Problem: Acute Qualifiers: Urinary tract infection type: acute cystitis Hematuria presence: without hematuria Qualified Code(s): N30.00 - Acute cystitis without hematuria (2) Anemia Problem: Resolved Qualifiers: Anemia type: iron deficiency Qualified Code(s): D64.9 - Anemia, unspecified (3) Acute metabolic encephalopathy Problem: Acute (4) Acute on chronic renal failure Problem: Acute Qualifiers: Acute renal failure type: with acute renal cortical necrosis Chronic kidney disease stage: stage 3 (moderate) Qualified Code(s): N17.1 - Acute kidney failure with acute cortical necrosis; N18.3 - Chronic kidney disease, stage 3 (moderate) (5) Type II diabetes mellitus Problem: Chronic Qualifiers: Diabetes mellitus long lines operator insulin use: with penitentiary use Diabetes mellitus complication status: with neurologic complications Diabetes mellitus complication detail: with polyneuropathy Qualified Code(s): E11.42 - Type 2 diabetes mellitus with diabetic polyneuropathy; Z79.4 - long term acute care registered nurse (current) use of insulin (6) Iron deficiency anemia Problem: Acute Qualifiers: Iron deficiency anemia type: inadequate dietary iron intake Qualified Code(s): D50.8 - Other iron deficiency anemias (7) Hypokalemia Problem: Chronic (8) Essential hypertension Problem: Chronic
[2019-08-08] MEDS: WARFARIN SODIUM 7.5 MG TABLET PO SCH (17:26)
[2019-08-08] MEDS ORDERED: LISINOPRIL 40 MG TABLET PO SCH (17:45)
[2019-08-08] MEDS ORDERED: LISINOPRIL 10 MG TABLET PO SCH (19:00)
[2019-08-08] MEDS: CHLORTHALIDONE 25 MG TABLET PO SCH (19:28)
[2019-08-08] MEDS: rOPINIRole HCL 0.5 MG TABLET PO SCH (21:45)
[2019-08-08] MEDS: PRAMIPEXOLE DI-HCL 0.5 MG TABLET PO SCH (21:45)
[2019-08-09 05:51] LABS: Prothrombin Time (Patient) 20.4 Seconds (9.1-10.7)
[2019-08-09 05:56] LABS: INR 2.12 INR (0.92-1.08)
[2019-08-09 06:01] LABS: Hematocrit 34.6 % (37.0-47.0); Hemoglobin 10.6 gm/dL (12.5-16.0); Mean Cell Volume 76.2 fl (78-100); Mean Corpuscular Hemoglobin 23.3 pg (27-31); Mean Corpuscular Hgb Conc 30.6 g/dl (32-36); Mean Platelet Volume 9.4 fl (8-12.5); Neutrophil # 2.3 K/mm3 (1.3-6.0); Neutrophil % 51.8 % (42-75.0); Platelet Count 220 K/mm3 (150-450); Red Blood Count 4.54 M/mm3 (4.2-5.4); Red Cell Distribution Width 19.2 % (11.5-14.0); White Blood Count 4.4 K/mm3 (4.0-10.5)
[2019-08-09 06:03] LABS: Albumin * 2.9 gm/dl (3.4-5.0); Anion Gap 10.5 mmol/L (6.8-13.8); BUN/Creatinine Ratio 9.4 (9.0-21.6); Bilirubin, Total 1.1 mg/dL (0.0-1.1); Ca. Corrected For Albumin 8.8 mg/dL (8.4-10.2); Calcium * 8.2 mg/dL (7.9-10.9); Carbon Dioxide 28.1 mmol/L (24-32.6); Potassium 3.6 mmol/L (3.4-4.6); Total Protein 6.4 gm/dL (6.2-8.2)
[2019-08-09] MEDS ORDERED: WARFARIN SODIUM 7.5 MG TABLET PO SCH ×2 (08:00→17:00)
[2019-08-09] MEDS: LORazepam 1 MG TABLET PO SCH ×2 (09:33→20:30)
[2019-08-09] MEDS: PANTOPRAZOLE SODIUM 40 MG TABLET.EC PO SCH (09:33)
[2019-08-09] MEDS: FERROUS SULFATE 325 MG TABLET PO SCH (09:34)
[2019-08-09] MEDS: HYDROCHLOROTHIAZIDE 25 MG TABLET PO SCH (09:35)
[2019-08-09] MEDS: CHLORTHALIDONE 25 MG TABLET PO SCH (09:35)
[2019-08-09] MEDS: POTASSIUM CHLORIDE 20 MEQ TABLET.SA PO SCH ×2 (09:36→16:41)
[2019-08-09] MEDS: FLECAINIDE ACETATE 100 MG TABLET PO SCH ×2 (09:36→20:40)
[2019-08-09] MEDS: METOPROLOL SUCCINATE 100 MG TABLET.SA PO SCH (09:37)
[2019-08-09] MEDS: LISINOPRIL 40 MG TABLET PO SCH (09:38)
[2019-08-09] MEDS: NYSTATIN 15 APPL BTL TP SCH ×2 (09:39→20:30)
[2019-08-09] MEDS: HYDROcodone/ACETAMINOPHEN 1 EACH TABLET PO PRN (09:39)
--- NOTE | 2019-08-09 11:38 | PN ---
Subjective - Date and Time Seen Date: 08/09/19 Time: 08:15 Subjective Narrative: Kimberli Albert has had an uneventful night however she continues to have confusion. She keeps pulling off her surveillance monitor and picking at her IV tubing. Physically she is better and stronger. She still poorly balanced however. Lab shows hemoglobin up to 10.6 g this morning. The potassium is corrected to 4.0. Her renal status is much improved. She is low in albumin but total protein is normal. She has been in normal sinus rhythm throughout the night. Vital signs have been stable blood pressure has improved with reintroduction of her antihypertensives. Blood pressure this morning 156/82. Physical therapy had her up to walk and she is still very unsteady and mentally is just not at her baseline yet. This represents a persistent metabolic encephalopathy due to the severe anemia, dehydration, electrolyte imbalance, and urinary tract infection. All parameters are better lab abebe. She is not able to go home and be independent. Objective - Review of Systems Generalized/Overall Review: Reports: Weakness EENTM: Reports: No Symptoms Reported Respiratory: Reports: No Symptoms Reported Cardiac: Reports: No Symptoms Reported Abdominal: Reports: No Symptoms Reported Genitourinary Symptoms: Reports: No Symptoms Reported Musculoskeletal Complaints: Reports: Back Pain - Bilateral knees Neurological: Reports: Depressed, Weakness Endocrine: Reports: No Symptoms Reported - Vitals Vitals: Last Vital Signs Temp 36.3 C 08/09/19 10:36 Pulse 77 08/09/19 10:36 Resp 18 08/09/19 10:36 BP 157/62 H 08/09/19 10:36 Pulse Ox 98 08/09/19 10:36 - Abnormal Lab Findings Abnormal Lab Findings: Abnormal Lab Results 08/09/19 08/09/19 08/09/19 Range/Units 05:30 05:30 05:30 Hgb 10.6 L (12.5-16.0) gm/dL Hct 34.6 L (37.0-47.0) % MCV 76.2 L (78-100) fl MCH 23.3 L (27-31) pg MCHC 30.6 L (32-36) g/dl RDW 19.2 H (11.5-14.0) % Monocytes % 12.6 H (0.0-9) % Eosinophils % 5.0 H (0.0-3.0) % Lymphocytes # 1.29 L (1.5-3.5) k/mm3 PT 20.4 H (9.1-10.7) Seconds INR (Anticoag Therapy) 2.12 H (0.92-1.08) INR Random Glucose 122 H (70-110) mg/dL ALT 17 L (19-67) U/L Albumin 2.9 L (3.4-5.0) gm/dl - EKG/Xray Findings EKG read: Reviewed by me - Exam Constitutional: Present: Alert, Cooperative, Well developed, Well nourished, Lethargic, Elderly, Obese ENT Exam: Present: normal ENT inspection, hearing grossly normal Neck: Present: non-tender, full range of motion, supple, normal inspection, trachea midline Breasts: Present: Exam deferred Respiratory: Present: chest non-tender, lungs clear, normal breath sounds, no respiratory distress, no accessory muscle use Cardiovascular/Chest: Present: normal peripheral pulses, regular rate, rhythm, no chest tenderness, no edema, no gallop, no JVD, no murmur, no rub Abdomen: Present: Normal bowel sounds, soft, nontender, nondistended, no rebound tenderness, no hepatospenomegaly, no masses, obese /Rectal: Present: Exam deferred Extremity: Present: normal range of motion, lower extremity edema Skin Exam: Present: normal color, warm/dry, no cyanosis Lymphatic: Present: no adenopathy Neurologic: Present: infant room teacher II-XII nml as tested, abnormal gait - Requiring 2 person assist, motor weakness, depressed affect, other - Episodes of confusion persist Appearance: Present: disheveled, impaired insight, impaired recent memory Eye contact: Present: cooperative, avoids eye contact, decreased rate of speech Thoughts: Present: normal thought pattern, no apparent hallucination Assessment/Plan Plan Narrative: 1. DC telemetry 2. Maintain saline locked IV 3. Continue to progress activity 4. Progress diet to consistent carb 5. Anticipate discharge tomorrow either to home or to [facility]. Case management is working with her insurance to get her qualified. 6. Morning lab ordered. - Problems/Diagnosis (1) UTI (urinary tract infection) Problem: Acute Qualifiers: Urinary tract infection type: acute cystitis Hematuria presence: without hematuria Qualified Code(s): N30.00 - Acute cystitis without hematuria (2) Anemia Problem: Resolved Qualifiers: Anemia type: iron deficiency Qualified Code(s): D64.9 - Anemia, unspecified (3) Acute metabolic encephalopathy Problem: Acute (4) Acute on chronic renal failure Problem: Acute Qualifiers: Acute renal failure type: with acute renal cortical necrosis Chronic kidney disease stage: stage 3 (moderate) Qualified Code(s): N17.1 - Acute kidney failure with acute cortical necrosis; N18.3 - Chronic kidney disease, stage 3 (moderate) (5) Type II diabetes mellitus Problem: Chronic Qualifiers: Diabetes mellitus mcc insulin use: with exterminator termite use Diabetes mellitus complication status: with neurologic complications Diabetes mellitus complication detail: with polyneuropathy Qualified Code(s): E11.42 - Type 2 diabetes mellitus with diabetic polyneuropathy; Z79.4 - care home (current) use of insulin (6) Iron deficiency anemia Problem: Acute Qualifiers: Iron deficiency anemia type: inadequate dietary iron intake Qualified Code(s): D50.8 - Other iron deficiency anemias (7) Hypokalemia Problem: Chronic (8) Essential hypertension Problem: Chronic
[2019-08-09] MEDS: PRAMIPEXOLE DI-HCL 0.5 MG TABLET PO SCH (20:30)
[2019-08-09] MEDS: rOPINIRole HCL 0.5 MG TABLET PO SCH (20:30)
[2019-08-10] MEDS: HYDROcodone/ACETAMINOPHEN 1 EACH TABLET PO PRN (01:46)
[2019-08-10 05:39] LABS: Prothrombin Time (Patient) 22.1 Seconds (9.1-10.7)
[2019-08-10 05:47] LABS: INR 2.31 INR (0.92-1.08)
[2019-08-10] MEDS: PANTOPRAZOLE SODIUM 40 MG TABLET.EC PO SCH (06:26)
[2019-08-10] MEDS: FERROUS SULFATE 325 MG TABLET PO SCH (08:18)
[2019-08-10] MEDS: METOPROLOL SUCCINATE 100 MG TABLET.SA PO SCH (08:18)
[2019-08-10] MEDS: HYDROCHLOROTHIAZIDE 25 MG TABLET PO SCH (08:19)
[2019-08-10] MEDS: POTASSIUM CHLORIDE 20 MEQ TABLET.SA PO SCH (08:19)
[2019-08-10] MEDS: LORazepam 1 MG TABLET PO SCH (08:19)
[2019-08-10] MEDS: FLECAINIDE ACETATE 100 MG TABLET PO SCH (08:19)
[2019-08-10] MEDS: LISINOPRIL 40 MG TABLET PO SCH (08:20)
[2019-08-10] MEDS: NYSTATIN 15 APPL BTL TP SCH (09:43)
[2019-08-10] MEDS: CHLORTHALIDONE 25 MG TABLET PO SCH (09:44)
--- NOTE | 2019-08-10 13:25 | DS ---
(1) UTI (urinary tract infection) Problem: Acute Qualifiers: Urinary tract infection type: acute cystitis Hematuria presence: without hematuria Qualified Code(s): N30.00 - Acute cystitis without hematuria (2) Anemia Problem: Resolved Qualifiers: Anemia type: iron deficiency Qualified Code(s): D64.9 - Anemia, unspecified (3) Acute metabolic encephalopathy Problem: Resolved (4) Acute on chronic renal failure Problem: Resolved Qualifiers: Acute renal failure type: with acute renal cortical necrosis Chronic kidney disease stage: stage 3 (moderate) Qualified Code(s): N17.1 - Acute kidney fa ilure with acute cortical necrosis; N18.3 - Chronic kidney disease, stage 3 (moderate) (5) Type II diabetes mellitus Problem: Chronic Qualifiers: Diabetes mellitus intermediate insulin use: with terminal makeup operator use Diabetes mellitus complication status: with neurologic complications Diabetes mellitus complication detail: with polyneuropathy Qualified Code(s): E11.42 - Type 2 diabetes mellitus with diabetic polyneuropathy; Z79.4 - ad terminal makeup operator (current) use of insulin (6) Iron deficiency anemia Problem: Acute Qualifiers: Iron deficiency anemia type: inadequate dietary iron intake Qualified Code(s): D50.8 - Other iron deficiency anemias (7) Hypokalemia Problem: Chronic (8) Essential hypertension Problem: Chronic Date of Discharge:: 08/10/19 Description of Stay: Kimberli Albert is a 73-year-old female who was found at home obtunded and covered in feces and urine. She was brought to the hospital and found to be anemic with a hemoglobin of 7.7 and very dehydrated with a EGFR of 18 and a creatinine of 2.77. Urinalysis revealed presence of a urinary tract infection. CT of the head did not show any acute bleeding. Chest x-ray was essentially normal. She was started on IV antibiotics for the UTI. She was given IV fluids and received 2 L from admission to the following morning. Her hemoglobin dropped to 6.6 g with rehydration. She was transfused with 3 units of packed red blood cells which increased her hemoglobin to 10.2 g. Her color improved dramatically and she was no longer in respiratory distress. She became more alert but initially was only oriented to familiar faces and then was oriented to people and her location but she did not know what time or what day it was. Today she is fully oriented to time date and place. She was not conversational the first couple of days. Today she is asking appropriate questions and answering questions. Physical therapy was working with her and initially it required 2 person assist to help her transfer from bed to toilet. Yesterday she was able to stand and walk short distance. Today she is walking much better with only contact-guard. She does not appear to be in any distress today. Yesterday his hemoglobin was 10.6 g. Her MCV is 76 and her RDW was elevated. She has a history of iron deficiency anemia but is not taking iron at the time of admission. She was started on iron here. Overall, she is much improved. She is requesting home health with [facility]. [id number] for home health: Kimberli Albert is confined to home due to generalized motor weakness and poor balance. She has just finished a hospitalization that was for a profound anemia, severe dehydration, metabolic encephalopathy, urinary tract infection, and iron deficiency. She will need jail to monitor vital signs, monitor medications and educate regarding Magic medications, monitor wounds on the buttocks, and diagnosis management education. She will need physical therapy for limb strengthening and improvement of endurance, gait training, improved balancing and improved mobility issues, improve ADLs, and to teach safety awareness. The need for home health care skilled services is directly related to the time spent [id number] with the person, Kimberli. Procedures Performed: none Results and Findings: Pending Mircobiology Results 08/06/19 19:55 Blood Blood Culture - Preliminary NO GROWTH AFTER 48 HOURS 08/06/19 19:25 Blood Blood Culture - Preliminary NO GROWTH AFTER 48 HOURS Lab Pending Results 08/06/19 19:10: Stool Occult Blood Negative 08/06/19 19:25: WBC 4.9, RBC 3.75 L, Hgb 7.7 L*, Hct 27.6 L, MCV 73.6 L, MCH 2 0.5 L, MCHC 27.9 L, RDW 18.1 H, Plt Count 258, MPV 8.5, Immature Gran % (Auto) 0.40, Immature Gran # (Auto) 0.02, Neutrophils % 65.9, Lymphocytes % 21.4, Monocytes % 10.7 H, Eosinophils % 0.8, Basophils % 0.8, Nucleated RBC % 0.0, Neutrophils # 3.2, Lymphocytes # 1.04 L, Monocytes # 0.5, Eosinophils # 0.0, Absolute Basophils 0.0 08/06/19 19:25: Sodium 136, Plasma Sodium 137, Potassium 4.1, Chloride 98, Carbon Dioxide 22.1 L, Anion Gap 20.0 H, BUN 42 H D, Creatinine 2.77 H D, Est GFR (Non-Af Amer) 18 L D, BUN/Creatinine Ratio 15.2, Random Glucose 172 H, Calcium 8.2, Calcium Adj for Albumin 8.3 L, Total Bilirubin 1.3 H, AST 54 H, ALT 22, Alkaline Phosphatase 79, Creatine Kinase 893 H, Troponin I Less than 0.017, C-Reactive Prot, Quant 1.0 H, Total Protein 7.5, Albumin 3.5 08/06/19 19:25: Lactic Acid, Venous 1.3 08/06/19 19:30: Urine Opiates Screen Positive H, Barbiturate Screen Negative, Ur Phencyclidine Scrn Negative, Urine Amphetamine Negative, U Benzodiazepines Scrn Negative, Urine Cocaine Screen Negative, Urine Marijuana (THC) Negative 08/06/19 20:16: Urine Color Yellow, Urine Appearance Cloudy, Urine pH 5.5, Ur Specific [place] >=1.030, Urine Protein 30 H, Urine Glucose (UA) Negative, Urine Ketones 5, Urine Blood 250 H, Urine Nitrate Negative, Urine Bilirubin 3 H, Urine Ictotest Negative, Prot Sulfosalicylic Acd QNS, Urine Urobilinogen Normal, Ur Leukocyte Esterase 100 H, Urine RBC 10-25 H, Urine WBC >50 H, Ur Epithelial Cells None seen, Urine Bacteria 3+ H, Urine Culture Comments Culture to follow 08/07/19 05:15: WBC 4.5, RBC 3.20 L, Hgb 6.6 L*, Hct 23.5 L*, MCV 73.4 L, MCH 20.6 L, MCHC 28.1 L, RDW 17.8 H, Plt Count 255, MPV 9.6, Immature Gran % (Auto) 0.20, Immature Gran # (Auto) 0.01, Neutrophils % 54.9, Lymphocytes % 28.7, Monocytes % 12.0 H, Eosinophils % 3.3 H, Basophils % 0.9, Nucleated RBC % 0.0, Neutrophils # 2.5, Lymphocytes # 1.29 L, Monocytes # 0.5, Eosinophils # 0.2, Absolute Basophils 0.0 08/07/19 05:15: PT 17.0 H, INR (Anticoag Therapy) 1.75 H 08/07/19 05:15: Iron 14 L, TIBC 319, Transferrin % Sat 4 L 08/07/19 05:15: Ferritin 21 08/07/19 05:17: Blood Type O Positive, Antibody Screen Negative, Crossmatch See Detail 08/07/19 20:20: Hgb 10.7 L, Hct 34.9 L 08/08/19 05:25: WBC 5.6 D, RBC 4.38, Hgb 10.2 L, Hct 33.3 L, MCV 76.0 L, MCH 23.3 L, MCHC 30.6 L, RDW 18.6 H, Plt Count 221, MPV 9.2, Immature Gran % (Auto) 0.20, Immature Gran # (Auto) 0.01, Neutrophils % 66.6, Lymphocytes % 19.1 L, Monocytes % 10.5 H, Eosinophils % 2.9, Basophils % 0.7, Nucleated RBC % 0.0, Neutrophils # 3.7, Lymphocytes # 1.07 L, Monocytes # 0.6, Eosinophils # 0.2, Absolute Basophils 0.0 08/08/19 05:25: Sodium 138, Plasma Sodium 138, Potassium 3.2 L D, Chloride 103, Carbon Dioxide 24.3, Anion Gap 13.9 H, BUN 18 D, Creatinine 1.03, Est GFR (Non- Af Amer) 56 L D, BUN/Creatinine Ratio 17.5, Random Glucose 121 H, Calcium 8.4, Calcium Adj for Albumin 9.0, Total Bilirubin 1.9 H, AST 35, ALT 17 L, Alkaline Phosphatase 76, Total Protein 6.3, Albumin 2.9 L 08/08/19 05:25: PT 17.4 H, INR (Anticoag Therapy) 1.80 H 08/09/19 05:30: WBC 4.4 D, RBC 4.54, Hgb 10.6 L, Hct 34.6 L, MCV 76.2 L, MCH 23.3 L, MCHC 30.6 L, RDW 19.2 H, Plt Count 220, MPV 9.4, Immature Gran % (Auto) 0.20, Immature Gran # (Auto) 0.01, Neutrophils % 51.8, Lymphocytes % 29.5, Monocytes % 12.6 H, Eosinophils % 5.0 H, Basophils % 0.9, Nucleated RBC % 0.0, Neutrophils # 2.3, Lymphocytes # 1.29 L, Monocytes # 0.6, Eosinophils # 0.2, Absolute Basophils 0.0 08/09/19 05:30: Sodium 138, Plasma Sodium 138, Potassium 3.6, Chloride 103, Carbon Dioxide 28.1, Anion Gap 10.5, BUN 9, Creatinine 0.96, Est GFR (Non-Af Amer) 61, BUN/Creatinine Ratio 9.4, Random Glucose 122 H, Calcium 8.2, Calcium Adj for Albumin 8.8, Total Bilirubin 1.1, AST 32, ALT 17 L, Alkaline Phosphatase 75, Total Protein 6.4, Albumin 2.9 L 08/09/19 05:30: PT 20.4 H, INR (Anticoag Therapy) 2.12 H 08/10/19 05:20: PT 22.1 H, INR (Anticoag Therapy) 2.31 H Discharge Location: Home Disposition: Home Health Service Home Health Agency: [facility] Condition: Stable Face to Face Encounter completed per [facility] Guidelines: Yes - For home health. See below. Discharge Activity: Activity as tolerated Discharge Diet: Consistent carbs Referrals: Anthony Whitehead DO [Primary Care Provider] - Additional Patient Instructions (free text): [facility]. Please call report and fax orders upon discharge -Please make TCM appointment unless senior care discharge, or if following up with outside provider. Thank you! Lida @ [facility] 1105. Complete Home Medications List: Complete Home Medication List: insulin human U-100 NPH-regulr 70-30 mix 100 unit/mL subcutaneous susp 20 unit SUB-Q BID ml 04/24/18 warfarin 7.5 mg tablet 7.5 mg PO DAILY #90 tab 12/21/18 atorvastatin 10 mg tablet 10 mg PO HS #90 tab 03/22/19 potassium chloride 10 mEq capsule,extended release 10 meq PO DAILY #90 cap 03/22/19 alcohol swabs 1 pad TP BID #200 ea 03/28/19 insulin syringe-needle U-100 1 mL 31 gauge x 5/16" See Dose Instructions .ROUTE .MEDSUPPLY #100 ea 03/28/19 oxybutynin chloride 10 mg tablet,extended release 24 hr 10 mg PO DAILY #90 tab 04/25/19 lancets 28 gauge See Dose Instructions .ROUTE .MEDSUPPLY #200 ea 05/01/19 ropinirole 0.5 mg tablet 0.5 mg PO HS #30 tab 05/26/19 metformin 1,000 mg tablet 500 mg PO BID #180 tab 06/08/19 levothyroxine 88 mcg capsule 88 mcg PO DAILY #90 cap 07/31/19 hydrocodone 5 mg-acetaminophen 325 mg tablet 1 tab PO Q6H PRN #30 tab 08/03/19 Omeprazole 40 mg PO DAILY 08/06/19 Pramipexole Di-HCl [Mirapex] 0.125 mg PO HS 08/06/19 Blood Sugar Diagnostic [Test Strips] 1 ea 08/07/19 Chlorthalidone 25 mg PO DAILY 08/07/19 Flecainide Acetate 100 mg PO BID 08/07/19 Hydrochlorothiazide [Hydrodiuril] 25 mg PO DAILY 08/07/19 LORazepam [Ativan] 1 mg PO BID 08/07/19 Lisinopril [Zestril] 1 tab .ROUTE DAILY 08/07/19 Metoprolol Succinate [Toprol Xl] 1 tab .ROUTE DAILY 08/07/19 Nitroglycerin [Nitrostat] 0.4 mg SUBLINGUAL Q5MIN PRN 08/07/19 Ranitidine HCl 300 mg PO DAILY 08/07/19 Cefdinir 300 mg PO BID #10 cap 08/10/19 Ferrous Sulfate 325 mg PO DAILY #100 tab 08/10/19 Nystatin [Mycostatin Powder] 1 appl TOPICAL BID #1 btl 08/10/19 Potassium Chloride [K-Dur] 20 meq PO BIDWM #60 tablet.sa 08/10/19
[2019-08-10 16:21] VITALS: BP 168/68
[2019-08-11] MEDS ORDERED: WARFARIN SODIUM 7.5 MG TABLET PO SCH (17:00)
== END 2019-08-10 16:28 | disposition home health service (06) | DRG 682 ==
LOC: ER 18:36 → MS 21:02
PROVIDERS: ADMIT Family Medicine; ATTEND Family Medicine
DX: I48.91 Unspecified atrial fibrillation; N30.00 Acute cystitis without hematuria; E11.42 Type 2 diabetes mellitus with diabetic polyneuropathy; I13.10 Hypertensive heart and chronic kidney disease without heart failure, with stage 1 through stage 4 chronic kidney disease, or unspecified chronic kidney disease; G93.41 Metabolic encephalopathy; Z79.01 Long term (current) use of anticoagulants; D50.9 Iron deficiency anemia, unspecified; N18.3 Chronic kidney disease, stage 3 (moderate); B96.20 Unspecified Escherichia coli [E. coli] as the cause of diseases classified elsewhere; E11.22 Type 2 diabetes mellitus with diabetic chronic kidney disease; Z23 Encounter for immunization; E87.6 Hypokalemia; Z79.4 Long term (current) use of insulin; E86.0 Dehydration; R53.1 Weakness; N17.9 Acute kidney failure, unspecified
CPT/HCPCS: 36415; 70450; 71010; 71045; 80053; 80307; 81001; 82272; 82550; 82728; 83540; 83550; 83605; 84484; 85014; 85018; 85025; 85610; 86140; 86850; 87040; 87077; 87086; 87186; 90686; 93005; 96361; 96374; 97110; 97116; 97161; 97530; 99285; P9016